=== PATIENT | male | born 1955 | race African-American/Black ===

== ENCOUNTER 2022-02-19 11:44 | Inpatient (IN) | payer MEDICARE, OTHER ==
[~2022-02-19] VITALS: Ht 182.9 cm; Wt 109.8 kg
[2022-02-19 15:09] LABS: BASOPHILS % 0.2 % (0.0-1.0); EOSINOPHILS # (AUTO) 0.1 (0.0-0.4); EOSINOPHILS % 0.9 % (0.0-6.0); HEMATOCRIT 30.6 % (38.2-49.6); HEMOGLOBIN 9.5 g/dL (14.0-18.0); LYMPHOCYTES # (AUTO) 1.2 (1.0-3.2); LYMPHOCYTES % 9.9 % (18.0-39.1); MEAN CORPUSCULAR HEMOGLOBIN 27.5 pg (28-32); MEAN CORPUSCULAR VOLUME 88.7 fL (81-99); MONOCYTES # (AUTO) 1.4 (0.2-0.8); MONOCYTES % 11.2 % (4.4-11.3); NEUTROPHILS # (AUTO) 9.7 (2.1-6.9); NEUTROPHILS % 77.3 % (38.7-80.0); PLATELET COUNT 165 x10e3/uL (140-360); RED BLOOD COUNT 3.45 x10e6/uL (4.3-5.7); RED CELL DISTRIBUTION WIDTH 14.2 % (11.7-14.4)
[2022-02-19 15:21] LABS: INR 1.04; PROTHROMBIN TIME 14.5 seconds (11.9-14.5)
[2022-02-19 15:29] LABS: ALBUMIN 3.4 g/dL (3.5-5.0); ALBUMIN/GLOBULIN RATIO 0.9 (0.8-2.0); ANION GAP 16.4 mmol/L (8-16); CALCIUM 8.2 mg/dL (8.4-10.2); CREATININE, SERUM 3.11 mg/dL (0.72-1.25); POTASSIUM 4.4 mmol/L (3.5-5.1)
[2022-02-19] MEDS: Morphine 2mg Syringe 2 MG/ML SYR IV PRN (16:07)
[2022-02-19] MEDS: ONDANSETRON HCL INJ 2MG/ML 2ML 2 MG/ML VIAL IV PRN (16:08)
[2022-02-19 17:45] VITALS: BP 147/65
[2022-02-19] MEDS ORDERED: NOVOLOG100 UNIT/1 SC (19:36)
[2022-02-19] MEDS ORDERED: NIFEDIPINE ER30 M1 PO (19:36)
[2022-02-19] MEDS ORDERED: METOPROLOL TAR100 MG PO (19:36)
[2022-02-19] MEDS ORDERED: SODIUM BICARBO650 MG PO (19:36)
[2022-02-19] MEDS ORDERED: LATANOPROST2.5 ML OP (19:36)
[2022-02-19] MEDS ORDERED: DORZOLAMIDE-TIM10 ML OP (19:36)
[2022-02-19] MEDS ORDERED: ATORVASTATIN CA20 MG PO (19:36)
[2022-02-19] MEDS ORDERED: TORSEMIDE20 MG PO (19:36)
[2022-02-19 20:00] VITALS: BP 126/57
[2022-02-19 20:30] VITALS: BP 126/57
[2022-02-19] MEDS: INSULIN LISPRO 100 UNIT/1 ML 3ML VIAL SQ SCH (21:45)
[2022-02-19] MEDS ORDERED: DORZOLAMIDE/TIMOLOL (OPTH SOL) 10 ML DRPETTE OP SCH (21:45)
[2022-02-19] MEDS ORDERED: ACETAMINOPHEN 325 MG TAB PO PRN (21:45)
[2022-02-19] MEDS ORDERED: HYDRALAZINE HCL 20 MG/ML VIAL IV PRN (21:45)
[2022-02-19] MEDS: LATANOPROST(OPTH) 2.5 ML BTL OP SCH (21:45)
[2022-02-19] MEDS: DORZOLAMIDE/TIMOLOL (OPTH SOL) 10 ML DRPETTE OP SCH (21:50)
[2022-02-19] MEDS: METOPROLOL TARTRATE 50 MG TAB PO SCH (23:02)
[2022-02-19] MEDS: ATORVASTATIN 20 MG TAB PO SCH (23:02)
[2022-02-20] VITALS (8 sets, daily range): BP systolic 126–150; BP diastolic 59–71
[2022-02-20 05:25] LABS: BASOPHILS % 0.3 % (0.0-1.0); EOSINOPHILS # (AUTO) 0.2 (0.0-0.4); EOSINOPHILS % 1.8 % (0.0-6.0); HEMATOCRIT 28.6 % (38.2-49.6); HEMOGLOBIN 8.9 g/dL (14.0-18.0); LYMPHOCYTES % 10.3 % (18.0-39.1); MEAN CORPUSCULAR HEMOGLOBIN 27.5 pg (28-32); MEAN CORPUSCULAR HGB CONC 31.1 g/dL (31-35); MEAN CORPUSCULAR VOLUME 88.3 fL (81-99); MONOCYTES # (AUTO) 1.2 (0.2-0.8); MONOCYTES % 12.3 % (4.4-11.3); NEUTROPHILS % 74.8 % (38.7-80.0); PLATELET COUNT 152 x10e3/uL (140-360); RED BLOOD COUNT 3.24 x10e6/uL (4.3-5.7); RED CELL DISTRIBUTION WIDTH 14.2 % (11.7-14.4)
[2022-02-20 05:53] LABS: ALBUMIN/GLOBULIN RATIO 0.9 (0.8-2.0); ANION GAP 16.2 mmol/L (8-16); CREATININE, SERUM 2.97 mg/dL (0.72-1.25); POTASSIUM 4.2 mmol/L (3.5-5.1)
[2022-02-20] MEDS: INSULIN LISPRO 100 UNIT/1 ML 3ML VIAL SQ SCH ×4 (07:30→22:32)
[2022-02-20] MEDS: METOPROLOL TARTRATE 50 MG TAB PO SCH ×2 (08:59→17:00)
[2022-02-20] MEDS: DORZOLAMIDE/TIMOLOL (OPTH SOL) 10 ML DRPETTE OP SCH ×2 (09:00→21:00)
[2022-02-20 09:11] LABS: CHOL/HDL RATIO 3.3 (3.9-4.7)
[2022-02-20 09:32] LABS: % IRON SATURATION 12 % (15-50); IRON 24 ug/dL (65-175); TOTAL IRON BINDING CAPACITY 202 ug/dL (261-478); TRANSFERRIN 144 mg/dL (174-364)
[2022-02-20] MEDS ORDERED: SODIUM CHLORIDE 0.45% 1,000 ML IV SCH (11:15)
[2022-02-20] MEDS: DEXTROSE 5%/0.225% SOD CHL 1,000 ML IV SCH (14:29)
[2022-02-20] MEDS: Morphine 2mg Syringe 2 MG/ML SYR IV PRN ×2 (15:08→19:00)
[2022-02-20] MEDS: ONDANSETRON HCL INJ 2MG/ML 2ML 2 MG/ML VIAL IV PRN ×2 (15:08→19:00)
[2022-02-20] MEDS ORDERED: BUPIVACAINE 0.25% 30ML SDV ONE (16:17)
[2022-02-20] MEDS: ATORVASTATIN 20 MG TAB PO SCH (20:59)
[2022-02-20] MEDS ORDERED: Vancomycin IV 1 GM in SODIUM CHLORIDE 0.9% 250ML 250 ML IV ONE (21:00)
[2022-02-20] MEDS: LATANOPROST(OPTH) 2.5 ML BTL OP SCH (21:00)
[2022-02-20] MEDS: IRON SUCROSE 100 MG in SODIUM CHLORIDE 0.9% 100 ML IV SCH (21:04)
[2022-02-21] VITALS (7 sets, daily range): BP systolic 124–160; BP diastolic 59–79
[2022-02-21] MEDS ORDERED: Morphine 2mg Syringe 2 MG/ML SYR IV PRN (00:30)
[2022-02-21] MEDS: HYDROCODONE/APAP 10MG-325MG TAB PO PRN ×2 (03:38→11:17)
[2022-02-21] MEDS: DEXTROSE 5%/0.225% SOD CHL 1,000 ML IV SCH (05:00)
[2022-02-21 05:41] LABS: BASOPHILS % 0.2 % (0.0-1.0); HEMATOCRIT 24.2 % (38.2-49.6); HEMOGLOBIN 7.5 g/dL (14.0-18.0); LYMPHOCYTES # (AUTO) 0.5 (1.0-3.2); LYMPHOCYTES % 3.9 % (18.0-39.1); MEAN CORPUSCULAR HEMOGLOBIN 27.9 pg (28-32); MONOCYTES % 7.9 % (4.4-11.3); NEUTROPHILS # (AUTO) 11.2 (2.1-6.9); NEUTROPHILS % 87.4 % (38.7-80.0); PLATELET COUNT 174 x10e3/uL (140-360); RED BLOOD COUNT 2.69 x10e6/uL (4.3-5.7); RED CELL DISTRIBUTION WIDTH 14.2 % (11.7-14.4)
[2022-02-21 05:57] LABS: ANION GAP 16.6 mmol/L (8-16); CREATININE, SERUM 2.98 mg/dL (0.72-1.25)
[2022-02-21 05:58] LABS: POTASSIUM 5.6 mmol/L (3.5-5.1)
[2022-02-21] MEDS: METOPROLOL TARTRATE 50 MG TAB PO SCH ×2 (08:26→17:59)
[2022-02-21] MEDS: INSULIN LISPRO 100 UNIT/1 ML 3ML VIAL SQ SCH ×4 (08:33→21:53)
[2022-02-21] MEDS: ASPIRIN 81 MG CHEW TAB PO SCH ×2 (08:34→17:59)
[2022-02-21] MEDS: DORZOLAMIDE/TIMOLOL (OPTH SOL) 10 ML DRPETTE OP SCH ×2 (08:34→21:16)
[2022-02-21] MEDS ORDERED: SOD POLYSTYRENE SULFONATE SUSP 15 GM/60 ML BTL PO ONE (10:00)
[2022-02-21] MEDS ORDERED: FENTANYL CITRATE/PF 100MCG/2 ML INJ ONE (13:38)
[2022-02-21] MEDS ORDERED: MIDAZOLAM HCL 2 MG/2 ML VIAL ONE (13:38)
[2022-02-21] MEDS: IRON SUCROSE 100 MG in SODIUM CHLORIDE 0.9% 100 ML IV SCH (14:00)
[2022-02-21 16:09] LABS: BASOPHILS % 0.2 % (0.0-1.0); EOSINOPHILS % 0.1 % (0.0-6.0); HEMATOCRIT 23.7 % (38.2-49.6); HEMOGLOBIN 7.3 g/dL (14.0-18.0); LYMPHOCYTES # (AUTO) 0.8 (1.0-3.2); LYMPHOCYTES % 6.1 % (18.0-39.1); MEAN CORPUSCULAR HEMOGLOBIN 27.5 pg (28-32); MEAN CORPUSCULAR HGB CONC 30.8 g/dL (31-35); MEAN CORPUSCULAR VOLUME 89.4 fL (81-99); MONOCYTES # (AUTO) 1.4 (0.2-0.8); MONOCYTES % 11.5 % (4.4-11.3); NEUTROPHILS % 81.3 % (38.7-80.0); PLATELET COUNT 181 x10e3/uL (140-360); RED BLOOD COUNT 2.65 x10e6/uL (4.3-5.7); RED CELL DISTRIBUTION WIDTH 14.1 % (11.7-14.4)
[2022-02-21 16:27] LABS: ANION GAP 16.4 mmol/L (8-16); CALCIUM 7.8 mg/dL (8.4-10.2); CREATININE, SERUM 3.3 mg/dL (0.72-1.25); POTASSIUM 4.4 mmol/L (3.5-5.1)
[2022-02-21] MEDS: SODIUM BICARBONATE 650 MG TAB PO SCH (17:59)
[2022-02-21] MEDS: ATORVASTATIN 20 MG TAB PO SCH (21:17)
[2022-02-21] MEDS: LATANOPROST(OPTH) 2.5 ML BTL OP SCH (21:19)
[2022-02-22] VITALS (9 sets, daily range): BP systolic 130–154; BP diastolic 57–83
[2022-02-22 05:17] LABS: BASOPHILS % 0.3 % (0.0-1.0); EOSINOPHILS # (AUTO) 0.1 (0.0-0.4); EOSINOPHILS % 0.9 % (0.0-6.0); LYMPHOCYTES # (AUTO) 1.3 (1.0-3.2); LYMPHOCYTES % 12.5 % (18.0-39.1); MEAN CORPUSCULAR HEMOGLOBIN 27.8 pg (28-32); MEAN CORPUSCULAR HGB CONC 32.5 g/dL (31-35); MEAN CORPUSCULAR VOLUME 85.5 fL (81-99); MONOCYTES # (AUTO) 1.3 (0.2-0.8); MONOCYTES % 12.3 % (4.4-11.3); NEUTROPHILS # (AUTO) 7.7 (2.1-6.9); PLATELET COUNT 178 x10e3/uL (140-360); RED BLOOD COUNT 2.34 x10e6/uL (4.3-5.7); RED CELL DISTRIBUTION WIDTH 14.3 % (11.7-14.4)
[2022-02-22 05:23] LABS: HEMOGLOBIN 6.5 g/dL (14.0-18.0)
[2022-02-22 05:36] LABS: ANION GAP 14.7 mmol/L (8-16); CALCIUM 7.6 mg/dL (8.4-10.2); CREATININE, SERUM 3.09 mg/dL (0.72-1.25); POTASSIUM 3.7 mmol/L (3.5-5.1)
[2022-02-22] MEDS ORDERED: SODIUM CHLORIDE 0.9% 250ML 250 ML IV ONE (05:45)
[2022-02-22] MEDS: METOPROLOL TARTRATE 50 MG TAB PO SCH ×2 (08:27→17:37)
[2022-02-22] MEDS: ASPIRIN 81 MG CHEW TAB PO SCH ×2 (08:27→17:36)
[2022-02-22] MEDS: SODIUM BICARBONATE 650 MG TAB PO SCH ×2 (08:28→17:36)
[2022-02-22] MEDS: IRON SUCROSE 100 MG in SODIUM CHLORIDE 0.9% 100 ML IV SCH (08:28)
[2022-02-22] MEDS: INSULIN LISPRO 100 UNIT/1 ML 3ML VIAL SQ SCH ×4 (08:37→21:06)
[2022-02-22] MEDS: DORZOLAMIDE/TIMOLOL (OPTH SOL) 10 ML DRPETTE OP SCH ×2 (08:38→20:57)
[2022-02-22] MEDS: HYDROCODONE/APAP 10MG-325MG TAB PO PRN (19:55)
[2022-02-22] MEDS: LATANOPROST(OPTH) 2.5 ML BTL OP SCH (20:55)
[2022-02-22] MEDS: ATORVASTATIN 20 MG TAB PO SCH (21:02)
[2022-02-23] VITALS (8 sets, daily range): BP systolic 128–156; BP diastolic 60–72
[2022-02-23 05:23] LABS: BASOPHILS % 0.4 % (0.0-1.0); EOSINOPHILS # (AUTO) 0.2 (0.0-0.4); EOSINOPHILS % 1.5 % (0.0-6.0); LYMPHOCYTES # (AUTO) 1.4 (1.0-3.2); LYMPHOCYTES % 12.6 % (18.0-39.1); MEAN CORPUSCULAR HEMOGLOBIN 28.2 pg (28-32); MONOCYTES # (AUTO) 1.4 (0.2-0.8); NEUTROPHILS # (AUTO) 7.8 (2.1-6.9); NEUTROPHILS % 71.5 % (38.7-80.0); PLATELET COUNT 191 x10e3/uL (140-360); RED BLOOD COUNT 2.84 x10e6/uL (4.3-5.7); RED CELL DISTRIBUTION WIDTH 14.8 % (11.7-14.4)
[2022-02-23 05:51] LABS: ANION GAP 16.8 mmol/L (8-16); CREATININE, SERUM 2.88 mg/dL (0.72-1.25); POTASSIUM 3.8 mmol/L (3.5-5.1)
[2022-02-23] MEDS: INSULIN LISPRO 100 UNIT/1 ML 3ML VIAL SQ SCH ×4 (08:00→20:54)
[2022-02-23] MEDS: DORZOLAMIDE/TIMOLOL (OPTH SOL) 10 ML DRPETTE OP SCH ×2 (09:34→20:56)
[2022-02-23] MEDS: ASPIRIN 81 MG CHEW TAB PO SCH ×2 (09:34→17:06)
[2022-02-23] MEDS: SODIUM BICARBONATE 650 MG TAB PO SCH ×2 (09:35→17:06)
[2022-02-23] MEDS: METOPROLOL TARTRATE 50 MG TAB PO SCH ×2 (09:35→17:06)
[2022-02-23] MEDS: EPOETIN ALFA-EPBX 10,000 UNIT/ML VIAL SC SCH (16:56)
[2022-02-23] MEDS: DOCUSATE SODIUM 100 MG CAP PO SCH (17:06)
[2022-02-23] MEDS ORDERED: HYDROCODONE/APAP 5MG-325MG TAB PO PRN (18:30)
[2022-02-23] MEDS ORDERED: LACTULOSE SYRUP 20 GM/30 ML UDC PO PRN (18:30)
[2022-02-23] MEDS: ATORVASTATIN 20 MG TAB PO SCH (20:52)
[2022-02-23] MEDS: LATANOPROST(OPTH) 2.5 ML BTL OP SCH (20:55)
[2022-02-24] VITALS (7 sets, daily range): BP systolic 132–158; BP diastolic 57–69
[2022-02-24] MEDS: DOCUSATE SODIUM 100 MG CAP PO SCH ×2 (09:13→17:19)
[2022-02-24] MEDS: ASPIRIN 81 MG CHEW TAB PO SCH ×2 (09:13→17:19)
[2022-02-24] MEDS: METOPROLOL TARTRATE 50 MG TAB PO SCH ×2 (09:14→17:20)
[2022-02-24] MEDS: SODIUM BICARBONATE 650 MG TAB PO SCH ×2 (09:14→17:20)
[2022-02-24] MEDS: DORZOLAMIDE/TIMOLOL (OPTH SOL) 10 ML DRPETTE OP SCH ×2 (09:18→20:57)
[2022-02-24] MEDS: INSULIN LISPRO 100 UNIT/1 ML 3ML VIAL SQ SCH ×4 (09:21→21:05)
[2022-02-24] MEDS ORDERED: SEVOFLURANE INHAL SOLN 250 ML PEN BTL INH ONE (14:21)
[2022-02-24] MEDS ORDERED: LIDOCAINE HCL 2% LOCAL INJ 5 ML SDV VIAL INJ ONE (14:21)
[2022-02-24] MEDS ORDERED: PROPOFOL IV EMULSION 10 MG/ML 20 ML VIAL IV ONE (14:21)
[2022-02-24] MEDS ORDERED: ONDANSETRON HCL INJ 2MG/ML 2ML 2 MG/ML VIAL IV ONE (14:21)
[2022-02-24] MEDS ORDERED: POVIDONE IODINE 0.05% 0.05 % ML PO ONE (14:21)
[2022-02-24] MEDS ORDERED: DEXAMETHASONE SOD PHOS INJ 4 MG/ML SDV IV ONE (14:21)
[2022-02-24] MEDS ORDERED: ACETAMINOPHEN 1000 MG/100 ML IV ONE (14:21)
[2022-02-24] MEDS ORDERED: EPHEDRINE SULFATE INJ 50 MG/ML VIAL IV ONE (14:21)
[2022-02-24] MEDS: HYDROCODONE/APAP 10MG-325MG TAB PO PRN (19:11)
[2022-02-24] MEDS: LATANOPROST(OPTH) 2.5 ML BTL OP SCH (20:58)
[2022-02-24] MEDS: ATORVASTATIN 20 MG TAB PO SCH (20:59)
[2022-02-25] VITALS (7 sets, daily range): BP systolic 131–159; BP diastolic 56–68
[2022-02-25] MEDS: INSULIN LISPRO 100 UNIT/1 ML 3ML VIAL SQ SCH ×4 (08:19→22:48)
[2022-02-25] MEDS: DORZOLAMIDE/TIMOLOL (OPTH SOL) 10 ML DRPETTE OP SCH ×2 (08:22→22:41)
[2022-02-25] MEDS: ASPIRIN 81 MG CHEW TAB PO SCH ×2 (08:22→17:21)
[2022-02-25] MEDS: SODIUM BICARBONATE 650 MG TAB PO SCH ×2 (08:22→17:20)
[2022-02-25] MEDS: DOCUSATE SODIUM 100 MG CAP PO SCH ×2 (08:22→17:20)
[2022-02-25] MEDS: METOPROLOL TARTRATE 50 MG TAB PO SCH ×2 (08:23→17:20)
[2022-02-25] MEDS: EPOETIN ALFA-EPBX 10,000 UNIT/ML VIAL SC SCH (14:51)
[2022-02-25] MEDS: HYDROCODONE/APAP 10MG-325MG TAB PO PRN ×2 (19:12→23:28)
[2022-02-25] MEDS: LATANOPROST(OPTH) 2.5 ML BTL OP SCH (22:41)
[2022-02-25] MEDS: ATORVASTATIN 20 MG TAB PO SCH (22:43)
[2022-02-26] VITALS: BP 141/69
[2022-02-26 02:23] VITALS: BP 141/69
[2022-02-26 04:00] VITALS: BP 146/67
[2022-02-26] MEDS: INSULIN LISPRO 100 UNIT/1 ML 3ML VIAL SQ SCH ×2 (07:30→11:30)
[2022-02-26 08:21] VITALS: BP 155/72
[2022-02-26] MEDS: DOCUSATE SODIUM 100 MG CAP PO SCH (09:14)
[2022-02-26] MEDS: ASPIRIN 81 MG CHEW TAB PO SCH (09:14)
[2022-02-26] MEDS: METOPROLOL TARTRATE 50 MG TAB PO SCH (09:15)
[2022-02-26] MEDS: SODIUM BICARBONATE 650 MG TAB PO SCH (09:15)
[2022-02-26] MEDS: DORZOLAMIDE/TIMOLOL (OPTH SOL) 10 ML DRPETTE OP SCH (09:23)
[2022-02-26 11:45] VITALS: BP 118/60
[2022-02-26] MEDS ORDERED: ONDANSETRON HCL 4 MG ORAL DISINTEGRATING TAB PO PRN (14:00)
== END 2022-02-26 14:43 | disposition home or self-care (01) | DRG 481 ==
LOC: ER 11:53 → ERHOLD 15:15 → MED/SURG 18:21 → MED/SURG3 02-21 09:41
PROVIDERS: ADMIT Internal Medicine; ATTEND Internal Medicine
PROC: 0QH Lower Bones, Insertion (ICD-10-PCS; principal; 2022-02-20 16:07)
PROC: 30233N1 Transfusion of Nonautologous Red Blood Cells into Peripheral Vein, Percutaneous Approach (ICD-10-PCS; 2022-02-22)
DX: S72.091A Other fracture of head and neck of right femur, initial encounter for closed fracture (principal); D62 Acute posthemorrhagic anemia; N18.4 Chronic kidney disease, stage 4 (severe); N17.9 Acute kidney failure, unspecified; E11.22 Type 2 diabetes mellitus with diabetic chronic kidney disease; I12.9 Hypertensive chronic kidney disease with stage 1 through stage 4 chronic kidney disease, or unspecified chronic kidney disease; Z79.4 Long term (current) use of insulin; D50.9 Iron deficiency anemia, unspecified; H54.8 Legal blindness, as defined in USA; W01.198A Fall on same level from slipping, tripping and stumbling with subsequent striking against other object, initial encounter; Z91.81 History of falling; Y93.9 Activity, unspecified; Z20.822 Contact with and (suspected) exposure to COVID-19
CPT/HCPCS: 0223U; 36415; 51700; 70450; 71045; 72125; 72170; 72192; 76000; 80048; 80053; 80061; 82948; 83540; 84466; 85025; 85610; 85730; 86850; 86900; 86920; 93005; 93306; 96361; 99251; 99283; C1713; J0690; J1100; J1756; J2001; J2250; J2270; J2405; J3010; J3370; J7050; P9016

== ENCOUNTER 2022-02-27 14:33 | Inpatient (IN) | payer MEDICARE ==
[~2022-02-27] VITALS: Ht 182.9 cm; Wt 109.8 kg
[~2022-02-27 14:33] MED LIST: ATORVASTATIN CA20 MG PO; DORZOLAMIDE-TIM10 ML OP; LATANOPROST2.5 ML OP; METOPROLOL TAR100 MG PO; NIFEDIPINE ER30 M1 PO; NOVOLOG100 UNIT/1 SC; SODIUM BICARBO650 MG PO; TORSEMIDE20 MG PO
[2022-02-27 15:25] LABS: BASOPHILS # (AUTO) 0.1 (0.0-0.1); BASOPHILS % 0.3 % (0.0-1.0); EOSINOPHILS % 0.1 % (0.0-6.0); LYMPHOCYTES # (AUTO) 1.5 (1.0-3.2); LYMPHOCYTES % 7.7 % (18.0-39.1); MEAN CORPUSCULAR HEMOGLOBIN 28.4 pg (28-32); MEAN CORPUSCULAR VOLUME 94.8 fL (81-99); MONOCYTES # (AUTO) 1.9 (0.2-0.8); MONOCYTES % 9.5 % (4.4-11.3); NEUTROPHILS # (AUTO) 15.5 (2.1-6.9); NEUTROPHILS % 79.5 % (38.7-80.0); PLATELET COUNT 330 x10e3/uL (140-360); RED BLOOD COUNT 2.11 x10e6/uL (4.3-5.7); RED CELL DISTRIBUTION WIDTH 16.1 % (11.7-14.4)
[2022-02-27] MEDS ORDERED: SODIUM CHLORIDE 0.9% 250ML 250 ML IV ONE (15:30)
[2022-02-27] MEDS ORDERED: ONDANSETRON HCL INJ 2MG/ML 2ML 2 MG/ML VIAL IV PRN (15:30)
[2022-02-27] MEDS ORDERED: SODIUM CHLORIDE FLUSH 10 ML SYR INJ PRN (15:30)
[2022-02-27 15:35] LABS: INR 1.14; PROTHROMBIN TIME 15.6 seconds (11.9-14.5)
[2022-02-27 15:42] LABS: ALBUMIN 2.8 g/dL (3.5-5.0); ALBUMIN/GLOBULIN RATIO 0.8 (0.8-2.0); ANION GAP 21.1 mmol/L (8-16); CALCIUM 8.2 mg/dL (8.4-10.2); CREATININE, SERUM 2.71 mg/dL (0.72-1.25); POTASSIUM 5.1 mmol/L (3.5-5.1)
[2022-02-27] MEDS ORDERED: SODIUM CHLORIDE 0.9% 1000ML 1,000 ML IV ONE (16:00)
[2022-02-27 16:08] LABS: COLOR,URINE YELLOW (YELLOW); KETONES,URINE NEGATIVE (NEGATIVE); LEUKOCYTE ESTERASE ,URINE 1+ (NEGATIVE); NITRITE,URINE NEGATIVE (NEGATIVE); PROTEIN,URINE DIPSTICK TRACE (NEGATIVE); URINE UROBILINOGEN 0.2 mg/dL (0.2 - 1)
[2022-02-27 16:23] LABS: BACTERIA,URINE MANY /HPF; EPITHELIAL CELLS,URINE FEW /LPF; RBC,URINE 21-50 /HPF (0-5); WBC,URINE (MAN) >50 /HPF (0-5)
[2022-02-27 16:24] LABS: CLARITY,URINE SL CLOUDY (CLEAR); MUCUS,URINE FEW (RARE); RENAL EPITHELIAL CELLS,URINE FEW; TRANSITIONAL EPI CELLS,URINE FEW
[2022-02-27] MEDS ORDERED: ACETAMINOPHEN 325 MG TAB PO PRN (17:00)
[2022-02-27] MEDS ORDERED: CLONIDINE HCL 0.1 MG TAB PO PRN (17:00)
[2022-02-27 17:10] VITALS: BP 120/62
[2022-02-27 18:02] VITALS: BP 121/62
[2022-02-27 19:20] VITALS: BP 126/71
[2022-02-27] MEDS ORDERED: DEXTROSE 50% SYRINGE 50 ML IV PRN (19:45)
[2022-02-27 20:00] VITALS: BP 126/71
[2022-02-27] MEDS: ATORVASTATIN 20 MG TAB PO SCH (20:36)
[2022-02-27] MEDS: INSULIN REGULAR, HUMAN 100 UNIT/1 ML SQ SCH (20:49)
[2022-02-27] MEDS: LATANOPROST(OPTH) 2.5 ML BTL OP SCH (20:50)
[2022-02-27] MEDS ORDERED: SODIUM CHLORIDE 0.9% 500ML 500 ML ONE (22:20)
[2022-02-27 23:10] LABS: % IRON SATURATION 29 % (15-50); IRON 61 ug/dL (65-175); TOTAL IRON BINDING CAPACITY 214 ug/dL (261-478); TRANSFERRIN 153 mg/dL (174-364)
[2022-02-27] MEDS ORDERED: BISACODYL 5 MG TAB EC PO ONE ×2 (23:15→23:45)
[2022-02-28] VITALS (8 sets, daily range): BP systolic 120–169; BP diastolic 57–76
[2022-02-28] MEDS ORDERED: SODIUM CHLORIDE 0.9% 500ML 500 ML ONE (03:28)
[2022-02-28] MEDS ORDERED: CITRATE OF MAGNESIA 300ML BOTTLE PO ONE ×3 (05:00→22:45)
[2022-02-28 07:26] LABS: BASOPHILS # (AUTO) 0.1 (0.0-0.1); BASOPHILS % 0.4 % (0.0-1.0); EOSINOPHILS # (AUTO) 0.1 (0.0-0.4); EOSINOPHILS % 0.6 % (0.0-6.0); HEMATOCRIT 24.9 % (38.2-49.6); HEMOGLOBIN 7.9 g/dL (14.0-18.0); LYMPHOCYTES # (AUTO) 1.4 (1.0-3.2); LYMPHOCYTES % 9.2 % (18.0-39.1); MEAN CORPUSCULAR HEMOGLOBIN 29.8 pg (28-32); MEAN CORPUSCULAR HGB CONC 31.7 g/dL (31-35); MONOCYTES % 13.1 % (4.4-11.3); NEUTROPHILS # (AUTO) 11.2 (2.1-6.9); NEUTROPHILS % 72.2 % (38.7-80.0); PLATELET COUNT 250 x10e3/uL (140-360); RED BLOOD COUNT 2.65 x10e6/uL (4.3-5.7); RED CELL DISTRIBUTION WIDTH 15.5 % (11.7-14.4)
[2022-02-28] MEDS: INSULIN REGULAR, HUMAN 100 UNIT/1 ML SQ SCH ×4 (07:30→21:20)
[2022-02-28 07:33] LABS: INR 1.12; PROTHROMBIN TIME 15.4 seconds (11.9-14.5)
[2022-02-28 07:43] LABS: ANION GAP 16.3 mmol/L (8-16); CALCIUM 7.8 mg/dL (8.4-10.2); CREATININE, SERUM 2.63 mg/dL (0.72-1.25); POTASSIUM 4.3 mmol/L (3.5-5.1)
[2022-02-28] MEDS ORDERED: SODIUM CHLORIDE 0.9% 250ML 250 ML ONE ×2 (08:29→08:30)
[2022-02-28] MEDS: SODIUM BICARBONATE 650 MG TAB PO SCH (09:00)
[2022-02-28] MEDS: IRON SUCROSE 100 MG in SODIUM CHLORIDE 0.9% 100 ML IV SCH (12:00)
[2022-02-28 13:53] LABS: HEMATOCRIT 25.6 % (38.2-49.6); HEMOGLOBIN 8.2 g/dL (14.0-18.0)
[2022-02-28] MEDS ORDERED: BISACODYL 5 MG TAB EC PO ONE ×2 (17:45→18:45)
[2022-02-28] MEDS: ATORVASTATIN 20 MG TAB PO SCH (20:03)
[2022-02-28] MEDS: LATANOPROST(OPTH) 2.5 ML BTL OP SCH (20:27)
[2022-03-01] VITALS (8 sets, daily range): BP systolic 127–163; BP diastolic 49–80
[2022-03-01] MEDS: IRON SUCROSE 100 MG in SODIUM CHLORIDE 0.9% 100 ML IV SCH (08:29)
[2022-03-01] MEDS: SODIUM BICARBONATE 650 MG TAB PO SCH (08:29)
[2022-03-01 08:31] LABS: BASOPHILS % 0.3 % (0.0-1.0); EOSINOPHILS # (AUTO) 0.1 (0.0-0.4); EOSINOPHILS % 0.7 % (0.0-6.0); HEMATOCRIT 23.9 % (38.2-49.6); HEMOGLOBIN 7.6 g/dL (14.0-18.0); LYMPHOCYTES # (AUTO) 1.1 (1.0-3.2); LYMPHOCYTES % 7.1 % (18.0-39.1); MEAN CORPUSCULAR HGB CONC 31.8 g/dL (31-35); MEAN CORPUSCULAR VOLUME 94.5 fL (81-99); MONOCYTES # (AUTO) 1.5 (0.2-0.8); MONOCYTES % 9.7 % (4.4-11.3); NEUTROPHILS # (AUTO) 12.1 (2.1-6.9); NEUTROPHILS % 78.8 % (38.7-80.0); PLATELET COUNT 275 x10e3/uL (140-360); RED BLOOD COUNT 2.53 x10e6/uL (4.3-5.7); RED CELL DISTRIBUTION WIDTH 17.1 % (11.7-14.4)
[2022-03-01] MEDS: INSULIN REGULAR, HUMAN 100 UNIT/1 ML SQ SCH ×4 (08:34→21:00)
[2022-03-01 09:12] LABS: ANION GAP 14.6 mmol/L (8-16); CREATININE, SERUM 2.32 mg/dL (0.72-1.25); POTASSIUM 3.6 mmol/L (3.5-5.1)
[2022-03-01] MEDS ORDERED: BISACODYL 5 MG TAB EC PO ONE ×3 (14:00→22:45)
[2022-03-01] MEDS: LATANOPROST(OPTH) 2.5 ML BTL OP SCH (21:00)
[2022-03-01] MEDS: ATORVASTATIN 20 MG TAB PO SCH (21:14)
[2022-03-01] MEDS: DEXTROSE 5%/LACTATED RINGERS 1,000 ML IV SCH (23:02)
[2022-03-02] VITALS (8 sets, daily range): BP systolic 132–162; BP diastolic 64–88
[2022-03-02 05:48] LABS: BASOPHILS # (AUTO) 0.1 (0.0-0.1); BASOPHILS % 0.4 % (0.0-1.0); EOSINOPHILS # (AUTO) 0.2 (0.0-0.4); EOSINOPHILS % 1.5 % (0.0-6.0); HEMATOCRIT 24.2 % (38.2-49.6); HEMOGLOBIN 7.7 g/dL (14.0-18.0); LYMPHOCYTES # (AUTO) 1.3 (1.0-3.2); LYMPHOCYTES % 9.3 % (18.0-39.1); MEAN CORPUSCULAR HGB CONC 31.8 g/dL (31-35); MEAN CORPUSCULAR VOLUME 94.2 fL (81-99); MONOCYTES # (AUTO) 1.4 (0.2-0.8); MONOCYTES % 9.8 % (4.4-11.3); NEUTROPHILS # (AUTO) 10.9 (2.1-6.9); NEUTROPHILS % 75.9 % (38.7-80.0); PLATELET COUNT 291 x10e3/uL (140-360); RED BLOOD COUNT 2.57 x10e6/uL (4.3-5.7); RED CELL DISTRIBUTION WIDTH 18.2 % (11.7-14.4)
[2022-03-02 06:01] LABS: ANION GAP 13.6 mmol/L (8-16); CALCIUM 8.2 mg/dL (8.4-10.2); CREATININE, SERUM 2.12 mg/dL (0.72-1.25); POTASSIUM 3.6 mmol/L (3.5-5.1)
[2022-03-02] MEDS: INSULIN REGULAR, HUMAN 100 UNIT/1 ML SQ SCH ×4 (07:30→21:53)
[2022-03-02] MEDS: SODIUM BICARBONATE 650 MG TAB PO SCH (09:00)
[2022-03-02] MEDS: IRON SUCROSE 100 MG in SODIUM CHLORIDE 0.9% 100 ML IV SCH (09:37)
[2022-03-02] MEDS ORDERED: HYOSCYAMINE SULFATE 0.5 MG/ML INJ ONE (12:35)
[2022-03-02] MEDS ORDERED: LIDOCAINE HCL 2% LOCAL INJ 5 ML SDV VIAL INJ ONE (12:35)
[2022-03-02] MEDS ORDERED: GLUCAGON FOR INJ 1 MG VIAL ONE (12:35)
[2022-03-02] MEDS ORDERED: PROPOFOL IV EMULSION 10 MG/ML 20 ML VIAL ONE (12:35)
[2022-03-02] MEDS: DEXTROSE 5%/LACTATED RINGERS 1,000 ML IV SCH (15:32)
[2022-03-02] MEDS: LATANOPROST(OPTH) 2.5 ML BTL OP SCH (21:00)
[2022-03-02] MEDS: ATORVASTATIN 20 MG TAB PO SCH (21:37)
[2022-03-03] VITALS (7 sets, daily range): BP systolic 120–160; BP diastolic 60–80
[2022-03-03] MEDS: DEXTROSE 5%/LACTATED RINGERS 1,000 ML IV SCH (01:25)
[2022-03-03 05:42] LABS: BASOPHILS % 0.4 % (0.0-1.0); EOSINOPHILS # (AUTO) 0.2 (0.0-0.4); HEMATOCRIT 23.4 % (38.2-49.6); HEMOGLOBIN 7.2 g/dL (14.0-18.0); LYMPHOCYTES % 9.7 % (18.0-39.1); MEAN CORPUSCULAR HEMOGLOBIN 30.4 pg (28-32); MEAN CORPUSCULAR HGB CONC 30.8 g/dL (31-35); MEAN CORPUSCULAR VOLUME 98.7 fL (81-99); MONOCYTES # (AUTO) 1.1 (0.2-0.8); MONOCYTES % 10.1 % (4.4-11.3); NEUTROPHILS # (AUTO) 7.9 (2.1-6.9); NEUTROPHILS % 75.8 % (38.7-80.0); PLATELET COUNT 263 x10e3/uL (140-360); RED BLOOD COUNT 2.37 x10e6/uL (4.3-5.7); RED CELL DISTRIBUTION WIDTH 19.5 % (11.7-14.4)
[2022-03-03 06:02] LABS: ANION GAP 11.6 mmol/L (8-16); CALCIUM 7.9 mg/dL (8.4-10.2); CREATININE, SERUM 1.78 mg/dL (0.72-1.25); POTASSIUM 3.6 mmol/L (3.5-5.1)
[2022-03-03] MEDS: INSULIN REGULAR, HUMAN 100 UNIT/1 ML SQ SCH ×4 (07:30→21:30)
[2022-03-03] MEDS: IRON SUCROSE 100 MG in SODIUM CHLORIDE 0.9% 100 ML IV SCH (10:12)
[2022-03-03] MEDS: SODIUM BICARBONATE 650 MG TAB PO SCH (10:12)
[2022-03-03] MEDS: DORZOLAMIDE/TIMOLOL (OPTH SOL) 10 ML DRPETTE OP SCH ×2 (12:30→21:00)
[2022-03-03] MEDS: METOPROLOL TARTRATE 50 MG TAB PO SCH (17:00)
[2022-03-03] MEDS ORDERED: SODIUM CHLORIDE 0.9% 250ML 250 ML ONE (18:09)
[2022-03-03] MEDS: LATANOPROST(OPTH) 2.5 ML BTL OP SCH (21:00)
[2022-03-03] MEDS: ATORVASTATIN 20 MG TAB PO SCH (21:24)
[2022-03-04] VITALS: BP 157/77
[2022-03-04 04:48] VITALS: BP 169/76
[2022-03-04 05:37] LABS: BASOPHILS # (AUTO) 0.1 (0.0-0.1); BASOPHILS % 0.5 % (0.0-1.0); EOSINOPHILS # (AUTO) 0.3 (0.0-0.4); EOSINOPHILS % 2.9 % (0.0-6.0); HEMATOCRIT 27.5 % (38.2-49.6); HEMOGLOBIN 8.7 g/dL (14.0-18.0); LYMPHOCYTES % 10.3 % (18.0-39.1); MEAN CORPUSCULAR HEMOGLOBIN 29.8 pg (28-32); MEAN CORPUSCULAR HGB CONC 31.6 g/dL (31-35); MEAN CORPUSCULAR VOLUME 94.2 fL (81-99); MONOCYTES % 9.7 % (4.4-11.3); NEUTROPHILS # (AUTO) 7.5 (2.1-6.9); NEUTROPHILS % 74.8 % (38.7-80.0); PLATELET COUNT 255 x10e3/uL (140-360); RED BLOOD COUNT 2.92 x10e6/uL (4.3-5.7)
[2022-03-04 05:50] LABS: ANION GAP 13.4 mmol/L (8-16); CALCIUM 7.9 mg/dL (8.4-10.2); CREATININE, SERUM 1.59 mg/dL (0.72-1.25); POTASSIUM 3.4 mmol/L (3.5-5.1)
[2022-03-04 07:52] VITALS: BP 148/72
[2022-03-04 09:00] VITALS: BP 148/72
[2022-03-04] MEDS: IRON SUCROSE 100 MG in SODIUM CHLORIDE 0.9% 100 ML IV SCH (09:05)
[2022-03-04] MEDS: SODIUM BICARBONATE 650 MG TAB PO SCH (09:06)
[2022-03-04] MEDS: DORZOLAMIDE/TIMOLOL (OPTH SOL) 10 ML DRPETTE OP SCH (09:06)
[2022-03-04] MEDS: METOPROLOL TARTRATE 50 MG TAB PO SCH (09:09)
[2022-03-04] MEDS: INSULIN REGULAR, HUMAN 100 UNIT/1 ML SQ SCH ×2 (09:09→12:02)
[2022-03-04] MEDS ORDERED: PROTONIX20 MG PO (09:45)
[2022-03-04] MEDS ORDERED: POTASSIUM CHLORIDE 10MEQ EA PO ONE (10:30)
[2022-03-04] MEDS ORDERED: AMOXICILLIN500 MG PO (10:49)
[2022-03-04] MEDS ORDERED: ONDANSETRON HCL 4 MG ORAL DISINTEGRATING TAB PO PRN (12:15)
[2022-03-04 12:26] VITALS: BP 171/74
[2022-03-04] MEDS ORDERED: PANTOPRAZOLE SOD 40 MG TABEC PO SCH (21:00)
== END 2022-03-04 12:44 | DRG 871 ==
LOC: ER 15:38 → ERHOLD 15:39 → MED/SURG2 17:25
PROVIDERS: ADMIT Internal Medicine; ATTEND Internal Medicine
PROC: 30233N1 Transfusion of Nonautologous Red Blood Cells into Peripheral Vein, Percutaneous Approach (ICD-10-PCS; 2022-02-27)
PROC: 0DBM8ZX Excision of Descending Colon, Via Natural or Artificial Opening Endoscopic, Diagnostic (ICD-10-PCS; 2022-03-02)
PROC: 0DB68ZX Excision of Stomach, Via Natural or Artificial Opening Endoscopic, Diagnostic (ICD-10-PCS; principal; 2022-03-02 19:26)
PROC: 0DB78ZX Excision of Stomach, Pylorus, Via Natural or Artificial Opening Endoscopic, Diagnostic (ICD-10-PCS; 2022-03-02 19:26)
DX: A41.9 Sepsis, unspecified organism (principal); K25.4 Chronic or unspecified gastric ulcer with hemorrhage; K26.4 Chronic or unspecified duodenal ulcer with hemorrhage; D62 Acute posthemorrhagic anemia; N39.0 Urinary tract infection, site not specified; N18.4 Chronic kidney disease, stage 4 (severe); E11.22 Type 2 diabetes mellitus with diabetic chronic kidney disease; I12.9 Hypertensive chronic kidney disease with stage 1 through stage 4 chronic kidney disease, or unspecified chronic kidney disease; K20.90 Esophagitis, unspecified without bleeding; K29.70 Gastritis, unspecified, without bleeding; K63.5 Polyp of colon; K64.8 Other hemorrhoids; H54.8 Legal blindness, as defined in USA; Z96.641 Presence of right artificial hip joint; Z20.822 Contact with and (suspected) exposure to COVID-19; E78.00 Pure hypercholesterolemia, unspecified; Z87.11 Personal history of peptic ulcer disease; B95.2 Enterococcus as the cause of diseases classified elsewhere
CPT/HCPCS: 0223U; 36415; 43239; 45378; 71045; 80048; 80053; 81001; 82607; 82746; 82948; 83540; 83605; 83735; 84466; 85014; 85018; 85025; 85045; 85610; 85730; 86850; 86900; 86920; 87040; 87086; 87186; 88304; 88305; 88312; 88342; 93005; 99284; J1610; J1756; J1817; J1980; J2001; J2543; J7030; J7040; J7050; P9016

== ENCOUNTER 2022-03-23 07:47 | Inpatient (IN) | payer MEDICARE ==
[~2022-03-23] VITALS: Ht 185.4 cm; Wt 121.7 kg
[2022-03-23] VITALS (21 sets, daily range): BP systolic 96–144; BP diastolic 29–124
[~2022-03-23 07:47] MED LIST changes: +AMOXICILLIN500 MG PO; +PROTONIX20 MG PO
[2022-03-23 08:19] LABS: BASOPHILS % 0.3 % (0.0-1.0); EOSINOPHILS # (AUTO) 0.1 (0.0-0.4); EOSINOPHILS % 0.6 % (0.0-6.0); HEMATOCRIT 29.2 % (38.2-49.6); HEMOGLOBIN 8.9 g/dL (14.0-18.0); LYMPHOCYTES # (AUTO) 0.4 (1.0-3.2); LYMPHOCYTES % 4.4 % (18.0-39.1); MEAN CORPUSCULAR HEMOGLOBIN 28.3 pg (28-32); MEAN CORPUSCULAR HGB CONC 30.5 g/dL (31-35); MONOCYTES # (AUTO) 0.9 (0.2-0.8); MONOCYTES % 9.6 % (4.4-11.3); NEUTROPHILS # (AUTO) 8.1 (2.1-6.9); NEUTROPHILS % 84.7 % (38.7-80.0); PLATELET COUNT 239 x10e3/uL (140-360); RED BLOOD COUNT 3.14 x10e6/uL (4.3-5.7); RED CELL DISTRIBUTION WIDTH 16.5 % (11.7-14.4)
[2022-03-23 08:30] LABS: INR 1.16; PROTHROMBIN TIME 15.8 seconds (11.9-14.5)
[2022-03-23 08:39] LABS: ABG PCO2 37 mmHg (35-45); ABG PH 7.33 (7.35-7.45); ABG PO2 51 mmHg (80-105)
[2022-03-23 08:40] LABS: ABG HCO3 20 mmol/L (22-26); ABG TCO2 21
[2022-03-23 09:28] LABS: ALBUMIN 2.8 g/dL (3.5-5.0); ALBUMIN/GLOBULIN RATIO 0.7 (0.8-2.0); ANION GAP 20.8 mmol/L (8-16); CALCIUM 8.5 mg/dL (8.4-10.2); CREATININE, SERUM 3.94 mg/dL (0.72-1.25); MAGNESIUM 2.7 MG/DL (1.3-2.1); POTASSIUM 5.8 mmol/L (3.5-5.1)
[2022-03-23 09:35] LABS: CREATINE KINASE MB 1.6 ng/mL (0-5.0)
[2022-03-23] MEDS ORDERED: FUROSEMIDE INJ 10 MG/ML 4 ML VIAL IV NR (10:00)
[2022-03-23 10:24] LABS: CLARITY,URINE CLEAR (CLEAR); COLOR,URINE YELLOW (YELLOW); KETONES,URINE TRACE (NEGATIVE); LEUKOCYTE ESTERASE ,URINE NEGATIVE (NEGATIVE); NITRITE,URINE NEGATIVE (NEGATIVE); PROTEIN,URINE DIPSTICK TRACE (NEGATIVE); URINE UROBILINOGEN 0.2 mg/dL (0.2 - 1)
[2022-03-23 10:29] LABS: BACTERIA,URINE MODERATE /HPF; EPITHELIAL CELLS,URINE MODERATE /LPF
[2022-03-23] MEDS ORDERED: DEXTROSE 50% SYRINGE 50 ML IV STA (11:01)
[2022-03-23] MEDS ORDERED: ONDANSETRON HCL INJ 2MG/ML 2ML 2 MG/ML VIAL IV PRN (11:15)
[2022-03-23] MEDS ORDERED: DEXTROSE 50% SYRINGE 50 ML IV PRN (11:15)
[2022-03-23] MEDS ORDERED: SODIUM BICARBONATE 8.4% INJ 50 ML SYR IV NR (11:15)
[2022-03-23] MEDS ORDERED: FAMOTIDINE 20 MG/2 ML VIAL IV SCH (11:15)
[2022-03-23] MEDS ORDERED: INSULIN REGULAR, HUMAN 100 UNIT/1 ML IV ONE (11:15)
[2022-03-23] MEDS: INSULIN LISPRO 100 UNIT/1 ML 3ML VIAL SQ SCH ×3 (11:30→21:36)
[2022-03-23] MEDS ORDERED: ALBUTEROL/IPRATROPIUM 3 ML NEB NEB NR (12:00)
[2022-03-23] MEDS ORDERED: LIDOCAINE HCL 2% LOCAL 20 ML VIAL ONE (14:18)
[2022-03-23] MEDS ORDERED: SODIUM CHLORIDE 0.9% 1000ML 2,000 ML ONE (14:37)
[2022-03-23] MEDS ORDERED: MANNITOL 25% 12.5GM/50 ML VIAL IV PRN (15:15)
[2022-03-23] MEDS ORDERED: SODIUM CHLORIDE 0.9% 250ML 500 ML IV PRN (15:15)
[2022-03-23] MEDS ORDERED: SODIUM CHLORIDE 0.9% 1000ML 2,000 ML IV PRN (15:15)
[2022-03-23] MEDS ORDERED: HEPARIN SOD (PORCINE) 1000 UNIT/ML SDV IV PRN (17:15)
[2022-03-23] MEDS ORDERED: HEPARIN SOD (PORCINE) 1000 UNIT/ML SDV ONE (17:17)
[2022-03-23 18:26] LABS: CREATINE KINASE MB 2.5 ng/mL (0-5.0)
[2022-03-23] MEDS ORDERED: CARVEDILOL12.5 MG PO (19:23)
[2022-03-23] MEDS ORDERED: GLIPIZIDE5 MG PO (19:25)
[2022-03-23] MEDS ORDERED: LYRICA50 MG PO (19:28)
[2022-03-23] MEDS ORDERED: HYDROCODON-ACE1 EAC9 PO (19:32)
[2022-03-23] MEDS ORDERED: MELATONIN3 MG PO (19:33)
[2022-03-23] MEDS ORDERED: CLONIDINE HCL0.1 MG PO (19:40)
[2022-03-23] MEDS ORDERED: ACETAMINOPHEN325 M1 PO ×2 (19:40→19:41)
[2022-03-23] MEDS: ATORVASTATIN 20 MG TAB PO SCH (21:35)
[2022-03-24] VITALS (32 sets, daily range): BP systolic 110–160; BP diastolic 33–148
[2022-03-24] MEDS: INSULIN LISPRO 100 UNIT/1 ML 3ML VIAL SQ SCH ×4 (08:01→21:22)
[2022-03-24] MEDS: PANTOPRAZOLE SOD 40 MG TABEC PO SCH (08:03)
[2022-03-24 08:10] LABS: BASOPHILS % 0.1 % (0.0-1.0); HEMATOCRIT 27.6 % (38.2-49.6); HEMOGLOBIN 8.5 g/dL (14.0-18.0); LYMPHOCYTES # (AUTO) 0.3 (1.0-3.2); LYMPHOCYTES % 3.3 % (18.0-39.1); MEAN CORPUSCULAR HEMOGLOBIN 28.2 pg (28-32); MEAN CORPUSCULAR HGB CONC 30.8 g/dL (31-35); MEAN CORPUSCULAR VOLUME 91.7 fL (81-99); MONOCYTES # (AUTO) 0.7 (0.2-0.8); MONOCYTES % 8.6 % (4.4-11.3); NEUTROPHILS # (AUTO) 6.9 (2.1-6.9); NEUTROPHILS % 87.4 % (38.7-80.0); PLATELET COUNT 243 x10e3/uL (140-360); RED BLOOD COUNT 3.01 x10e6/uL (4.3-5.7); RED CELL DISTRIBUTION WIDTH 16.3 % (11.7-14.4)
[2022-03-24 08:27] LABS: % IRON SATURATION 16 % (15-50); IRON 29 ug/dL (65-175); TOTAL IRON BINDING CAPACITY 186 ug/dL (261-478); TRANSFERRIN 133 mg/dL (174-364)
[2022-03-24 08:29] LABS: ALBUMIN 2.8 g/dL (3.5-5.0); ALBUMIN/GLOBULIN RATIO 0.7 (0.8-2.0); ANION GAP 21.2 mmol/L (8-16); CALCIUM 8.1 mg/dL (8.4-10.2); CHOL/HDL RATIO 3.3 (3.9-4.7); CREATININE, SERUM 3.48 mg/dL (0.72-1.25); POTASSIUM 5.2 mmol/L (3.5-5.1)
[2022-03-24] MEDS ORDERED: ALBUMIN 25% 12.5GM 0.25 GM/ML BTL IV PRN (10:30)
[2022-03-24] MEDS ORDERED: HEPARIN SOD (PORCINE) 1000 UNIT/ML SDV IV PRN (10:30)
[2022-03-24 19:38] LABS: CREATININE,URINE RANDOM 248.17 mg/dL (63-166); TOTAL PROTEIN, URINE 21.7 mg/dL (1-14)
[2022-03-24] MEDS: ATORVASTATIN 20 MG TAB PO SCH (21:21)
[2022-03-25] VITALS (8 sets, daily range): BP systolic 121–146; BP diastolic 63–80
[2022-03-25 06:20] LABS: ALBUMIN 2.6 g/dL (3.5-5.0); ALBUMIN/GLOBULIN RATIO 0.8 (0.8-2.0); ANION GAP 13.9 mmol/L (8-16); CALCIUM 7.9 mg/dL (8.4-10.2); CREATININE, SERUM 2.11 mg/dL (0.72-1.25); POTASSIUM 3.9 mmol/L (3.5-5.1)
[2022-03-25] MEDS: INSULIN LISPRO 100 UNIT/1 ML 3ML VIAL SQ SCH ×4 (07:30→21:01)
[2022-03-25] MEDS: PANTOPRAZOLE SOD 40 MG TABEC PO SCH (10:20)
[2022-03-25] MEDS ORDERED: SODIUM CHLORIDE 0.9% 500ML 500 ML ONE (10:30)
[2022-03-25] MEDS ORDERED: ONDANSETRON HCL 4 MG ORAL DISINTEGRATING TAB PO PRN (13:15)
[2022-03-25] MEDS: ATORVASTATIN 20 MG TAB PO SCH (20:52)
[2022-03-26 05:09] VITALS: BP 143/72
[2022-03-26 06:30] LABS: ALBUMIN 2.6 g/dL (3.5-5.0); ALBUMIN/GLOBULIN RATIO 0.9 (0.8-2.0); CREATININE, SERUM 1.74 mg/dL (0.72-1.25)
[2022-03-26] MEDS: INSULIN LISPRO 100 UNIT/1 ML 3ML VIAL SQ SCH ×4 (07:58→21:22)
[2022-03-26 08:00] VITALS: BP 153/75
[2022-03-26] MEDS: PANTOPRAZOLE SOD 40 MG TABEC PO SCH (08:11)
[2022-03-26 08:57] VITALS: BP 143/72
[2022-03-26] MEDS ORDERED: AZITHROMYCIN 250 MG TAB PO SCH (10:00)
[2022-03-26 11:38] VITALS: BP 148/85
[2022-03-26 16:03] VITALS: BP 141/67
[2022-03-26 19:50] VITALS: BP 135/66
[2022-03-26] MEDS: ATORVASTATIN 20 MG TAB PO SCH (21:14)
[2022-03-27] VITALS (7 sets, daily range): BP systolic 141–160; BP diastolic 65–84
[2022-03-27 05:06] LABS: BASOPHILS % 0.2 % (0.0-1.0); EOSINOPHILS # (AUTO) 0.3 (0.0-0.4); EOSINOPHILS % 3.1 % (0.0-6.0); HEMATOCRIT 28.6 % (38.2-49.6); HEMOGLOBIN 8.6 g/dL (14.0-18.0); LYMPHOCYTES # (AUTO) 0.9 (1.0-3.2); LYMPHOCYTES % 9.7 % (18.0-39.1); MEAN CORPUSCULAR HEMOGLOBIN 27.6 pg (28-32); MEAN CORPUSCULAR HGB CONC 30.1 g/dL (31-35); MEAN CORPUSCULAR VOLUME 91.7 fL (81-99); MONOCYTES # (AUTO) 0.8 (0.2-0.8); MONOCYTES % 9.3 % (4.4-11.3); NEUTROPHILS # (AUTO) 6.7 (2.1-6.9); PLATELET COUNT 229 x10e3/uL (140-360); RED BLOOD COUNT 3.12 x10e6/uL (4.3-5.7); RED CELL DISTRIBUTION WIDTH 16.8 % (11.7-14.4)
[2022-03-27 05:46] LABS: ANION GAP 12.9 mmol/L (8-16); CALCIUM 7.8 mg/dL (8.4-10.2); CREATININE, SERUM 1.5 mg/dL (0.72-1.25); POTASSIUM 3.9 mmol/L (3.5-5.1)
[2022-03-27] MEDS: PANTOPRAZOLE SOD 40 MG TABEC PO SCH (08:03)
[2022-03-27] MEDS: INSULIN LISPRO 100 UNIT/1 ML 3ML VIAL SQ SCH ×4 (08:25→21:00)
[2022-03-27] MEDS: NIFEDIPINE CR 30 MG TAB PO SCH (14:04)
[2022-03-27] MEDS: ATORVASTATIN 20 MG TAB PO SCH (21:18)
[2022-03-28] VITALS (9 sets, daily range): BP systolic 129–159; BP diastolic 62–88
[2022-03-28] MEDS: INSULIN LISPRO 100 UNIT/1 ML 3ML VIAL SQ SCH ×4 (07:30→21:00)
[2022-03-28] MEDS: PANTOPRAZOLE SOD 40 MG TABEC PO SCH (09:27)
[2022-03-28] MEDS: NIFEDIPINE CR 30 MG TAB PO SCH (09:28)
[2022-03-28] MEDS: ATORVASTATIN 20 MG TAB PO SCH (21:37)
[2022-03-29] VITALS (8 sets, daily range): BP systolic 133–152; BP diastolic 63–73
[2022-03-29 05:53] LABS: BASOPHILS % 0.3 % (0.0-1.0); EOSINOPHILS # (AUTO) 0.2 (0.0-0.4); EOSINOPHILS % 2.9 % (0.0-6.0); HEMATOCRIT 29.5 % (38.2-49.6); HEMOGLOBIN 8.7 g/dL (14.0-18.0); LYMPHOCYTES # (AUTO) 0.9 (1.0-3.2); LYMPHOCYTES % 10.7 % (18.0-39.1); MEAN CORPUSCULAR HEMOGLOBIN 27.9 pg (28-32); MEAN CORPUSCULAR HGB CONC 29.5 g/dL (31-35); MEAN CORPUSCULAR VOLUME 94.6 fL (81-99); MONOCYTES # (AUTO) 0.8 (0.2-0.8); MONOCYTES % 10.2 % (4.4-11.3); NEUTROPHILS % 75.4 % (38.7-80.0); PLATELET COUNT 218 x10e3/uL (140-360); RED BLOOD COUNT 3.12 x10e6/uL (4.3-5.7); RED CELL DISTRIBUTION WIDTH 16.5 % (11.7-14.4)
[2022-03-29 06:11] LABS: ANION GAP 12.3 mmol/L (8-16); CALCIUM 8.3 mg/dL (8.4-10.2); CREATININE, SERUM 1.36 mg/dL (0.72-1.25); POTASSIUM 4.3 mmol/L (3.5-5.1)
[2022-03-29] MEDS: NIFEDIPINE CR 30 MG TAB PO SCH (08:43)
[2022-03-29] MEDS: PANTOPRAZOLE SOD 40 MG TABEC PO SCH (08:43)
[2022-03-29] MEDS: INSULIN LISPRO 100 UNIT/1 ML 3ML VIAL SQ SCH ×4 (08:56→21:00)
[2022-03-29] MEDS ORDERED: BENZONATATE 100 MG CAP PO PRN (16:45)
[2022-03-29] MEDS: DORZOLAMIDE/TIMOLOL (OPTH SOL) 10 ML DRPETTE OP SCH (17:31)
[2022-03-29] MEDS ORDERED: LATANOPROST(OPTH) 2.5 ML BTL OP SCH (21:00)
[2022-03-29] MEDS: ATORVASTATIN 20 MG TAB PO SCH (21:51)
[2022-03-30] VITALS: BP 137/67
[2022-03-30 04:00] VITALS: BP 136/66
[2022-03-30] MEDS: INSULIN LISPRO 100 UNIT/1 ML 3ML VIAL SQ SCH ×2 (07:30→12:01)
[2022-03-30 08:45] VITALS: BP 136/66
[2022-03-30] MEDS: NIFEDIPINE CR 30 MG TAB PO SCH (09:11)
[2022-03-30] MEDS: PANTOPRAZOLE SOD 40 MG TABEC PO SCH (09:11)
[2022-03-30] MEDS: DORZOLAMIDE/TIMOLOL (OPTH SOL) 10 ML DRPETTE OP SCH (09:12)
[2022-03-30 09:19] VITALS: BP 152/74
[2022-03-30 12:23] VITALS: BP 150/73
== END 2022-03-30 14:52 | disposition home health service (06) | DRG 189 ==
LOC: ER 07:55 → ERHOLD 11:37 → ICU 13:52 → MED/SURG3 03-24 21:38
PROVIDERS: ADMIT Internal Medicine; ATTEND Internal Medicine
PROC: 02HV33Z Insertion of Infusion Device into Superior Vena Cava, Percutaneous Approach (ICD-10-PCS; principal; 2022-03-23)
PROC: 5A1D70Z Performance of Urinary Filtration, Intermittent, Less than 6 Hours Per Day (ICD-10-PCS; 2022-03-23)
PROC: 5A0935A Assistance with Respiratory Ventilation, Less than 24 Consecutive Hours, High Flow/Velocity Cannula (ICD-10-PCS; 2022-03-23)
DX: J96.01 Acute respiratory failure with hypoxia (principal); G92.8 Other toxic encephalopathy; N17.9 Acute kidney failure, unspecified; E87.2 Acidosis; K27.9 Peptic ulcer, site unspecified, unspecified as acute or chronic, without hemorrhage or perforation; E87.5 Hyperkalemia; E11.319 Type 2 diabetes mellitus with unspecified diabetic retinopathy without macular edema; Z20.822 Contact with and (suspected) exposure to COVID-19; E11.22 Type 2 diabetes mellitus with diabetic chronic kidney disease; I12.9 Hypertensive chronic kidney disease with stage 1 through stage 4 chronic kidney disease, or unspecified chronic kidney disease; N18.32 Chronic kidney disease, stage 3b; T36.1X5A Adverse effect of cephalosporins and other beta-lactam antibiotics, initial encounter; D63.8 Anemia in other chronic diseases classified elsewhere; H54.7 Unspecified visual loss
CPT/HCPCS: 36415; 36600; 70450; 71045; 76770; 80048; 80053; 80061; 81001; 82550; 82553; 82570; 82805; 82948; 83540; 83605; 83735; 83880; 84156; 84466; 84484; 85025; 85610; 85730; 86704; 86706; 87040; 87086; 87340; 93005; 93971; 94640; 94660; 94799; 96372; 99251; 99285; J0456; J0692; J1644; J1817; J1940; J2001; J2150; J7030; J7040; J7050; J7799

== ENCOUNTER 2022-08-26 15:00 | Inpatient (IN) | payer MEDICARE ==
[~2022-08-26] VITALS: Ht 185.4 cm; Wt 121.6 kg
[~2022-08-26 15:00] MED LIST changes: +ACETAMINOPHEN325 M1 PO; +CARVEDILOL12.5 MG PO; +CLONIDINE HCL0.1 MG PO; +FENTANYL CITRATE/PF 100MCG/2 ML INJ ONE; +GLIPIZIDE5 MG PO; +HYDROCODON-ACE1 EAC9 PO; +LIDOCAINE HCL 2% LOCAL INJ 5 ML SDV VIAL INJ ONE; +LYRICA50 MG PO; +MELATONIN3 MG PO; +MIDAZOLAM HCL 2 MG/2 ML VIAL ONE; +ONDANSETRON HCL INJ 2MG/ML 2ML 2 MG/ML VIAL ONE; +POVIDONE IODINE 0.05% 0.05 % ML PO ONE; +PROPOFOL IV EMULSION 10 MG/ML 20 ML VIAL ONE; +SEVOFLURANE INHAL SOLN 250 ML PEN BTL ONE
[2022-08-26 15:43] LABS: BASOPHILS % 0.2 % (0.0-1.0); EOSINOPHILS % 0.2 % (0.0-6.0); HEMATOCRIT 31.8 % (38.2-49.6); HEMOGLOBIN 10.1 g/dL (14.0-18.0); LYMPHOCYTES # (AUTO) 0.9 (1.0-3.2); LYMPHOCYTES % 4.5 % (18.0-39.1); MEAN CORPUSCULAR HGB CONC 31.8 g/dL (31-35); MONOCYTES # (AUTO) 1.8 (0.2-0.8); MONOCYTES % 9.2 % (4.4-11.3); NEUTROPHILS # (AUTO) 16.5 (2.1-6.9); NEUTROPHILS % 84.7 % (38.7-80.0); PLATELET COUNT 325 x10e3/uL (140-360); RED BLOOD COUNT 3.74 x10e6/uL (4.3-5.7); RED CELL DISTRIBUTION WIDTH 16.2 % (11.7-14.4)
[2022-08-26] MEDS ORDERED: SODIUM CHLORIDE 0.9% 1000ML 500 ML IV ONE (16:45)
[2022-08-26] MEDS ORDERED: SODIUM CHLORIDE 0.9% 500ML 500 ML ONE (16:50)
[2022-08-26 17:43] LABS: ALBUMIN 2.1 g/dL (3.5-5.0); ALBUMIN/GLOBULIN RATIO 0.4 (0.8-2.0); ANION GAP 25.9 mmol/L (8-16); CALCIUM 9.4 mg/dL (8.4-10.2); CREATININE, SERUM 6.25 mg/dL (0.72-1.25); POTASSIUM 4.9 mmol/L (3.5-5.1)
[2022-08-26 17:49] LABS: CREATINE KINASE MB 1.6 ng/mL (0-5.0)
[2022-08-26] MEDS ORDERED: ONDANSETRON HCL INJ 2MG/ML 2ML 2 MG/ML VIAL IV PRN (18:00)
[2022-08-26] MEDS ORDERED: SODIUM CHLORIDE FLUSH 10 ML SYR INJ PRN (18:00)
[2022-08-26 20:00] VITALS: BP 90/53
[2022-08-26] MEDS ORDERED: DEXTROSE 50% SYRINGE 50 ML IV PRN (21:15)
[2022-08-26] MEDS: INSULIN LISPRO 100 UNIT/1 ML 3ML VIAL SQ SCH (22:05)
[2022-08-27] VITALS (7 sets, daily range): BP systolic 80–102; BP diastolic 36–80
[2022-08-27] MEDS ORDERED: SODIUM CHLORIDE 0.9% 1000ML 500 ML IV ONE (04:30)
[2022-08-27 05:03] LABS: BASOPHILS % 0.2 % (0.0-1.0); EOSINOPHILS % 0.1 % (0.0-6.0); HEMATOCRIT 29.1 % (38.2-49.6); HEMOGLOBIN 9.2 g/dL (14.0-18.0); LYMPHOCYTES # (AUTO) 0.5 (1.0-3.2); LYMPHOCYTES % 2.3 % (18.0-39.1); MEAN CORPUSCULAR HEMOGLOBIN 26.4 pg (28-32); MEAN CORPUSCULAR HGB CONC 31.6 g/dL (31-35); MEAN CORPUSCULAR VOLUME 83.6 fL (81-99); MONOCYTES # (AUTO) 1.9 (0.2-0.8); MONOCYTES % 8.2 % (4.4-11.3); NEUTROPHILS # (AUTO) 20.4 (2.1-6.9); NEUTROPHILS % 87.6 % (38.7-80.0); PLATELET COUNT 310 x10e3/uL (140-360); RED BLOOD COUNT 3.48 x10e6/uL (4.3-5.7)
[2022-08-27 05:23] LABS: CREATINE KINASE MB 1.2 ng/mL (0-5.0)
[2022-08-27 05:47] LABS: ALBUMIN 2.1 g/dL (3.5-5.0); ALBUMIN/GLOBULIN RATIO 0.4 (0.8-2.0); ANION GAP 25.1 mmol/L (8-16); CALCIUM 9.7 mg/dL (8.4-10.2); CREATININE, SERUM 6.88 mg/dL (0.72-1.25); POTASSIUM 5.1 mmol/L (3.5-5.1)
[2022-08-27 06:42] LABS: BAND NEUTROPHILS % (MANUAL) 3 %; LYMPHOCYTES % (MANUAL) 3 % (19-48); MONOCYTES % (MANUAL) 9 % (3.4-9.0); NEUTROPHILS % (MANUAL) 85 % (40-74)
[2022-08-27 06:44] LABS: HYPOCHROMASIA SLIGHT; PLATELET ESTIMATE ADEQUATE; PLATELET MORPHOLOGY COMMENT NORMAL; RBC MORPHOLOGY COMMENT NORMAL
[2022-08-27] MEDS ORDERED: INSULIN LISPRO 100 UNIT/1 ML 3ML VIAL SQ SCH (07:30)
[2022-08-27] MEDS: INSULIN LISPRO 100 UNIT/1 ML 3ML VIAL SQ SCH ×4 (07:30→21:58)
[2022-08-27] MEDS ORDERED: Vancomycin IV 1 GM in SODIUM CHLORIDE 0.9% 250ML 250 ML IV ONE (08:30)
[2022-08-27] MEDS: SODIUM BICARBONATE 650 MG TAB PO SCH (10:04)
[2022-08-27] MEDS: SODIUM CHLORIDE 0.9% 1000ML 1,000 ML IV SCH ×2 (10:04→17:40)
[2022-08-27] MEDS: PANTOPRAZOLE SOD 40 MG TABEC PO SCH ×2 (10:04→16:53)
[2022-08-27 10:50] LABS: CREATINE KINASE MB 1.4 ng/mL (0-5.0)
[2022-08-27] MEDS: ACETAMINOPHEN 325 MG TAB PO PRN (13:04)
[2022-08-27 13:26] LABS: % IRON SATURATION 14 % (15-50); IRON 17 ug/dL (65-175); TOTAL IRON BINDING CAPACITY 118 ug/dL (261-478); TRANSFERRIN 84 mg/dL (174-364)
[2022-08-27 13:50] LABS: INR 1.8; PROTHROMBIN TIME 21.1 seconds (11.9-14.5)
[2022-08-27 14:29] LABS: CREATINE KINASE MB 1.1 ng/mL (0-5.0)
[2022-08-27] MEDS: IRON SUCROSE 100 MG in SODIUM CHLORIDE 0.9% 100 ML IV SCH (21:45)
[2022-08-27] MEDS: ATORVASTATIN 20 MG TAB PO SCH (21:46)
[2022-08-28] VITALS (8 sets, daily range): BP systolic 87–101; BP diastolic 41–55
[2022-08-28] MEDS: SODIUM CHLORIDE 0.9% 1000ML 1,000 ML IV SCH ×2 (06:22→17:51)
[2022-08-28 06:23] LABS: BASOPHILS # (AUTO) 0.1 (0.0-0.1); BASOPHILS % 0.6 % (0.0-1.0); EOSINOPHILS # (AUTO) 0.2 (0.0-0.4); EOSINOPHILS % 2.2 % (0.0-6.0); HEMATOCRIT 36.5 % (38.2-49.6); HEMOGLOBIN 11.9 g/dL (14.0-18.0); LYMPHOCYTES # (AUTO) 1.7 (1.0-3.2); LYMPHOCYTES % 17.3 % (18.0-39.1); MEAN CORPUSCULAR HEMOGLOBIN 32.4 pg (28-32); MEAN CORPUSCULAR HGB CONC 32.6 g/dL (31-35); MEAN CORPUSCULAR VOLUME 99.5 fL (81-99); MONOCYTES % 10.8 % (4.4-11.3); NEUTROPHILS # (AUTO) 6.6 (2.1-6.9); NEUTROPHILS % 68.8 % (38.7-80.0); PLATELET COUNT 260 x10e3/uL (140-360); RED BLOOD COUNT 3.67 x10e6/uL (4.3-5.7); RED CELL DISTRIBUTION WIDTH 12.1 % (11.7-14.4)
[2022-08-28 06:25] LABS: PROTHROMBIN TIME 13.4 seconds (11.9-14.5)
[2022-08-28 06:42] LABS: ALBUMIN 2.8 g/dL (3.5-5.0); ALBUMIN/GLOBULIN RATIO 0.8 (0.8-2.0); ANION GAP 14.3 mmol/L (8-16); CALCIUM 8.1 mg/dL (8.4-10.2); CREATININE, SERUM 0.83 mg/dL (0.72-1.25); POTASSIUM 4.3 mmol/L (3.5-5.1)
[2022-08-28] MEDS: PANTOPRAZOLE SOD 40 MG TABEC PO SCH ×2 (07:30→17:52)
[2022-08-28] MEDS: INSULIN LISPRO 100 UNIT/1 ML 3ML VIAL SQ SCH ×4 (07:30→21:34)
[2022-08-28] MEDS ORDERED: SODIUM CHLORIDE 0.9% 250ML 250 ML ONE ×2 (08:45→11:25)
[2022-08-28] MEDS ORDERED: LIDOCAINE 1% 10 ML MULTIDOSE VIAL IJ ONE (08:45)
[2022-08-28] MEDS: SODIUM BICARBONATE 650 MG TAB PO SCH (09:00)
[2022-08-28] MEDS: BALSAM PERU/CASTOR OIL 60 GM OINT...G. TP SCH (10:54)
[2022-08-28] MEDS ORDERED: FENTANYL CITRATE/PF 100MCG/2 ML INJ ONE (11:24)
[2022-08-28] MEDS ORDERED: MIDAZOLAM HCL 2 MG/2 ML VIAL ONE (11:24)
[2022-08-28] MEDS ORDERED: HEPARIN SOD (PORCINE) 1000 UNIT/ML SDV ONE ×2 (11:24→15:15)
[2022-08-28 13:56] LABS: BASOPHILS # (AUTO) 0.1 (0.0-0.1); BASOPHILS % 0.4 % (0.0-1.0); EOSINOPHILS # (AUTO) 0.1 (0.0-0.4); EOSINOPHILS % 0.5 % (0.0-6.0); HEMATOCRIT 26.7 % (38.2-49.6); HEMOGLOBIN 8.2 g/dL (14.0-18.0); LYMPHOCYTES # (AUTO) 0.6 (1.0-3.2); LYMPHOCYTES % 3.8 % (18.0-39.1); MEAN CORPUSCULAR HGB CONC 30.7 g/dL (31-35); MEAN CORPUSCULAR VOLUME 84.8 fL (81-99); MONOCYTES # (AUTO) 1.4 (0.2-0.8); MONOCYTES % 8.3 % (4.4-11.3); NEUTROPHILS # (AUTO) 13.1 (2.1-6.9); NEUTROPHILS % 80.1 % (38.7-80.0); PLATELET COUNT 362 x10e3/uL (140-360); RED BLOOD COUNT 3.15 x10e6/uL (4.3-5.7); RED CELL DISTRIBUTION WIDTH 16.6 % (11.7-14.4)
[2022-08-28 14:19] LABS: ALBUMIN 1.8 g/dL (3.5-5.0); ALBUMIN/GLOBULIN RATIO 0.4 (0.8-2.0); ANION GAP 23.8 mmol/L (8-16); CALCIUM 8.7 mg/dL (8.4-10.2); CREATININE, SERUM 7.41 mg/dL (0.72-1.25); POTASSIUM 4.8 mmol/L (3.5-5.1)
[2022-08-28] MEDS ORDERED: SODIUM CHLORIDE 0.9% 1000ML 1,000 ML ONE (14:32)
[2022-08-28] MEDS ORDERED: SODIUM CHLORIDE 0.9% 1000ML 2,000 ML IV PRN (15:15)
[2022-08-28] MEDS ORDERED: HEPARIN SOD (PORCINE) 1000 UNIT/ML SDV IV PRN (15:15)
[2022-08-28] MEDS ORDERED: MANNITOL 25% 12.5GM/50 ML VIAL IV PRN (15:15)
[2022-08-28] MEDS ORDERED: SODIUM CHLORIDE 0.9% IV SCH (16:00)
[2022-08-28] MEDS ORDERED: DAPTOMYCIN IV SCH (16:00)
[2022-08-28] MEDS ORDERED: Vancomycin IV 1 GM in SODIUM CHLORIDE 0.9% 250ML 250 ML IV ONE (16:00)
[2022-08-28] MEDS: ATORVASTATIN 20 MG TAB PO SCH (21:28)
[2022-08-28] MEDS: IRON SUCROSE 100 MG in SODIUM CHLORIDE 0.9% 100 ML IV SCH (22:17)
[2022-08-29] VITALS (8 sets, daily range): BP systolic 100–109; BP diastolic 48–59
[2022-08-29] MEDS: SODIUM CHLORIDE 0.9% 1000ML 1,000 ML IV SCH ×2 (02:01→10:24)
[2022-08-29] MEDS: ACETAMINOPHEN 325 MG TAB PO PRN (04:02)
[2022-08-29 06:43] LABS: ALBUMIN 1.9 g/dL (3.5-5.0); ALBUMIN/GLOBULIN RATIO 0.4 (0.8-2.0); ANION GAP 22.4 mmol/L (8-16); CALCIUM 8.6 mg/dL (8.4-10.2); CREATININE, SERUM 6.33 mg/dL (0.72-1.25); POTASSIUM 4.4 mmol/L (3.5-5.1)
[2022-08-29] MEDS: INSULIN LISPRO 100 UNIT/1 ML 3ML VIAL SQ SCH ×4 (07:30→21:00)
[2022-08-29] MEDS: PANTOPRAZOLE SOD 40 MG TABEC PO SCH ×2 (08:30→17:17)
[2022-08-29] MEDS: SODIUM BICARBONATE 650 MG TAB PO SCH (09:56)
[2022-08-29] MEDS: BALSAM PERU/CASTOR OIL 60 GM OINT...G. TP SCH (09:56)
[2022-08-29] MEDS ORDERED: SODIUM CHLORIDE 0.9% 1000ML 1,000 ML ONE (10:24)
[2022-08-29] MEDS: IRON SUCROSE 100 MG in SODIUM CHLORIDE 0.9% 100 ML IV SCH (20:47)
[2022-08-29] MEDS: ATORVASTATIN 20 MG TAB PO SCH (20:48)
[2022-08-29] MEDS: INSULIN GLARGINE 100 UNITS/ML VIAL SQ SCH (21:00)
[2022-08-30] VITALS (8 sets, daily range): BP systolic 116–129; BP diastolic 43–65
[2022-08-30 07:04] LABS: BASOPHILS # (AUTO) 0.1 (0.0-0.1); BASOPHILS % 0.5 % (0.0-1.0); EOSINOPHILS % 0.3 % (0.0-6.0); HEMOGLOBIN 7.6 g/dL (14.0-18.0); LYMPHOCYTES # (AUTO) 0.6 (1.0-3.2); LYMPHOCYTES % 5.1 % (18.0-39.1); MEAN CORPUSCULAR HEMOGLOBIN 26.1 pg (28-32); MEAN CORPUSCULAR HGB CONC 31.7 g/dL (31-35); MEAN CORPUSCULAR VOLUME 82.5 fL (81-99); MONOCYTES # (AUTO) 1.2 (0.2-0.8); MONOCYTES % 9.6 % (4.4-11.3); NEUTROPHILS # (AUTO) 9.4 (2.1-6.9); NEUTROPHILS % 75.7 % (38.7-80.0); PLATELET COUNT 383 x10e3/uL (140-360); RED BLOOD COUNT 2.91 x10e6/uL (4.3-5.7)
[2022-08-30 07:35] LABS: ANION GAP 18.1 mmol/L (8-16); CALCIUM 8.7 mg/dL (8.4-10.2); CREATININE, SERUM 4.61 mg/dL (0.72-1.25); POTASSIUM 4.1 mmol/L (3.5-5.1)
[2022-08-30] MEDS: INSULIN LISPRO 100 UNIT/1 ML 3ML VIAL SQ SCH ×4 (08:00→20:51)
[2022-08-30] MEDS: PANTOPRAZOLE SOD 40 MG TABEC PO SCH ×2 (08:00→17:30)
[2022-08-30 08:41] LABS: BAND NEUTROPHILS % (MANUAL) 5 %; LYMPHOCYTES % (MANUAL) 6 % (19-48); NEUTROPHILS % (MANUAL) 79 % (40-74)
[2022-08-30 08:42] LABS: HYPOCHROMASIA SLIGHT; MONOCYTES % (MANUAL) 9 % (3.4-9.0); MYELOCYTES % (MANUAL) 1 % (0-0)
[2022-08-30 08:43] LABS: ANISOCYTOSIS SLIGHT; PLATELET ESTIMATE SLIGHTLY INCREASED; PLATELET MORPHOLOGY COMMENT NORMAL; RBC MORPHOLOGY COMMENT NORMAL
[2022-08-30] MEDS: SODIUM BICARBONATE 650 MG TAB PO SCH (08:59)
[2022-08-30] MEDS: BALSAM PERU/CASTOR OIL 60 GM OINT...G. TP SCH (09:00)
[2022-08-30 17:06] LABS: CLARITY,URINE CLOUDY (CLEAR); KETONES,URINE 1+ (NEGATIVE); LEUKOCYTE ESTERASE ,URINE 1+ (NEGATIVE); NITRITE,URINE NEGATIVE (NEGATIVE); PROTEIN,URINE DIPSTICK 2+ (NEGATIVE); URINE UROBILINOGEN 0.2 mg/dL (0.2 - 1)
[2022-08-30 17:12] LABS: COLOR,URINE AMBER (YELLOW); WBC,URINE (MAN) 21-50 /HPF (0-5)
[2022-08-30 17:13] LABS: AMORPHOUS SEDIMENT,URINE MANY (FEW); BACTERIA,URINE MANY /HPF; EPITHELIAL CELLS,URINE FEW /LPF; MUCUS,URINE MANY (RARE); RBC,URINE >50 /HPF (0-5)
[2022-08-30] MEDS: INSULIN GLARGINE 100 UNITS/ML VIAL SQ SCH (20:52)
[2022-08-30] MEDS: ATORVASTATIN 20 MG TAB PO SCH (21:03)
[2022-08-31] VITALS (7 sets, daily range): BP systolic 115–145; BP diastolic 49–59
[2022-08-31 06:29] LABS: BASOPHILS # (AUTO) 0.1 (0.0-0.1); BASOPHILS % 0.4 % (0.0-1.0); EOSINOPHILS % 0.3 % (0.0-6.0); HEMATOCRIT 24.8 % (38.2-49.6); HEMOGLOBIN 7.8 g/dL (14.0-18.0); LYMPHOCYTES # (AUTO) 0.9 (1.0-3.2); LYMPHOCYTES % 5.5 % (18.0-39.1); MEAN CORPUSCULAR HEMOGLOBIN 26.2 pg (28-32); MEAN CORPUSCULAR HGB CONC 31.5 g/dL (31-35); MEAN CORPUSCULAR VOLUME 83.2 fL (81-99); MONOCYTES # (AUTO) 1.3 (0.2-0.8); MONOCYTES % 8.4 % (4.4-11.3); NEUTROPHILS # (AUTO) 11.9 (2.1-6.9); NEUTROPHILS % 76.5 % (38.7-80.0); PLATELET COUNT 400 x10e3/uL (140-360); RED BLOOD COUNT 2.98 x10e6/uL (4.3-5.7); RED CELL DISTRIBUTION WIDTH 16.2 % (11.7-14.4)
[2022-08-31 06:52] LABS: CALCIUM 8.5 mg/dL (8.4-10.2); CREATININE, SERUM 5.38 mg/dL (0.72-1.25)
[2022-08-31] MEDS: INSULIN LISPRO 100 UNIT/1 ML 3ML VIAL SQ SCH ×4 (07:30→20:55)
[2022-08-31] MEDS: PANTOPRAZOLE SOD 40 MG TABEC PO SCH ×2 (07:30→14:21)
[2022-08-31 08:31] LABS: LYMPHOCYTES % (MANUAL) 9 % (19-48); METAMYELOCYTES % (MANUAL) 1 % (0-0); MONOCYTES % (MANUAL) 7 % (3.4-9.0); MYELOCYTES % (MANUAL) 2 % (0-0); NEUTROPHILS % (MANUAL) 81 % (40-74)
[2022-08-31 08:32] LABS: PLATELET ESTIMATE ADEQUATE; PLATELET MORPHOLOGY COMMENT NORMAL; RBC MORPHOLOGY COMMENT NORMAL
[2022-08-31] MEDS ORDERED: SODIUM CHLORIDE 0.9% 250ML 250 ML IV ONE (08:45)
[2022-08-31] MEDS ORDERED: ALBUMIN 25% 12.5GM 0.25 GM/ML BTL IV PRN (09:00)
[2022-08-31] MEDS ORDERED: HEPARIN SOD (PORCINE) 1000 UNIT/ML SDV IV PRN (09:00)
[2022-08-31] MEDS: SODIUM BICARBONATE 650 MG TAB PO SCH (14:21)
[2022-08-31] MEDS: BALSAM PERU/CASTOR OIL 60 GM OINT...G. TP SCH (14:23)
[2022-08-31] MEDS: ATORVASTATIN 20 MG TAB PO SCH (20:52)
[2022-08-31] MEDS: INSULIN GLARGINE 100 UNITS/ML VIAL SQ SCH (20:56)
[2022-09-01] VITALS (7 sets, daily range): BP systolic 122–157; BP diastolic 52–75
[2022-09-01 06:02] LABS: BASOPHILS # (AUTO) 0.1 (0.0-0.1); BASOPHILS % 0.6 % (0.0-1.0); EOSINOPHILS # (AUTO) 0.1 (0.0-0.4); EOSINOPHILS % 0.4 % (0.0-6.0); HEMATOCRIT 26.9 % (38.2-49.6); HEMOGLOBIN 8.9 g/dL (14.0-18.0); LYMPHOCYTES # (AUTO) 0.8 (1.0-3.2); LYMPHOCYTES % 5.7 % (18.0-39.1); MEAN CORPUSCULAR HEMOGLOBIN 26.3 pg (28-32); MEAN CORPUSCULAR HGB CONC 33.1 g/dL (31-35); MEAN CORPUSCULAR VOLUME 79.6 fL (81-99); MONOCYTES # (AUTO) 1.2 (0.2-0.8); MONOCYTES % 8.4 % (4.4-11.3); NEUTROPHILS # (AUTO) 11.2 (2.1-6.9); PLATELET COUNT 362 x10e3/uL (140-360); RED BLOOD COUNT 3.38 x10e6/uL (4.3-5.7); RED CELL DISTRIBUTION WIDTH 16.3 % (11.7-14.4)
[2022-09-01 06:21] LABS: ALBUMIN 1.7 g/dL (3.5-5.0); ALBUMIN/GLOBULIN RATIO 0.4 (0.8-2.0); ANION GAP 13.5 mmol/L (8-16); CALCIUM 8.6 mg/dL (8.4-10.2); CREATININE, SERUM 3.36 mg/dL (0.72-1.25); POTASSIUM 3.5 mmol/L (3.5-5.1)
[2022-09-01] MEDS: PANTOPRAZOLE SOD 40 MG TABEC PO SCH ×2 (08:22→16:03)
[2022-09-01] MEDS: SODIUM BICARBONATE 650 MG TAB PO SCH (08:22)
[2022-09-01] MEDS: INSULIN LISPRO 100 UNIT/1 ML 3ML VIAL SQ SCH ×4 (08:30→20:56)
[2022-09-01] MEDS: BALSAM PERU/CASTOR OIL 60 GM OINT...G. TP SCH (08:30)
[2022-09-01 09:29] LABS: BAND NEUTROPHILS % (MANUAL) 2 %; LYMPHOCYTES % (MANUAL) 8 % (19-48); MONOCYTES % (MANUAL) 5 % (3.4-9.0); MYELOCYTES % (MANUAL) 7 % (0-0); NEUTROPHILS % (MANUAL) 78 % (40-74); PLATELET ESTIMATE ADEQUATE; PLATELET MORPHOLOGY COMMENT NORMAL; RBC MORPHOLOGY COMMENT NORMAL
[2022-09-01] MEDS: ATORVASTATIN 20 MG TAB PO SCH (20:36)
[2022-09-01] MEDS: INSULIN GLARGINE 100 UNITS/ML VIAL SQ SCH (21:00)
[2022-09-02] VITALS (8 sets, daily range): BP systolic 133–153; BP diastolic 57–73
[2022-09-02] MEDS: PANTOPRAZOLE SOD 40 MG TABEC PO SCH ×2 (07:30→16:26)
[2022-09-02] MEDS: INSULIN LISPRO 100 UNIT/1 ML 3ML VIAL SQ SCH ×4 (07:30→21:00)
[2022-09-02] MEDS ORDERED: IRON325 M1 PEG (08:34)
[2022-09-02] MEDS ORDERED: METOPROLOL TAR100 MG PO (08:34)
[2022-09-02] MEDS ORDERED: ELIQUIS5 MG PO (08:34)
[2022-09-02] MEDS: BALSAM PERU/CASTOR OIL 60 GM OINT...G. TP SCH (09:00)
[2022-09-02] MEDS: SODIUM BICARBONATE 650 MG TAB PO SCH (09:00)
[2022-09-02 09:15] LABS: ANION GAP 15.4 mmol/L (8-16); CALCIUM 8.7 mg/dL (8.4-10.2); CREATININE, SERUM 3.91 mg/dL (0.72-1.25); POTASSIUM 3.4 mmol/L (3.5-5.1)
[2022-09-02] MEDS ORDERED: BENZOCAINE 20% SPR 60 ML CAN ONE (10:08)
[2022-09-02] MEDS ORDERED: MIDAZOLAM HCL 2 MG/2 ML VIAL ONE ×2 (10:08→10:38)
[2022-09-02] MEDS ORDERED: SODIUM CHLORIDE 0.9% 1000ML 1,000 ML ONE (10:08)
[2022-09-02] MEDS ORDERED: FENTANYL CITRATE/PF 100MCG/2 ML INJ ONE (10:08)
[2022-09-02] MEDS ORDERED: ONDANSETRON HCL 4 MG ORAL DISINTEGRATING TAB PO PRN (14:30)
[2022-09-02] MEDS: INSULIN GLARGINE 100 UNITS/ML VIAL SQ SCH (21:00)
[2022-09-02] MEDS: ATORVASTATIN 20 MG TAB PO SCH (21:33)
[2022-09-03] VITALS (10 sets, daily range): BP systolic 117–148; BP diastolic 61–82
[2022-09-03 06:01] LABS: BASOPHILS # (AUTO) 0.1 (0.0-0.1); BASOPHILS % 0.4 % (0.0-1.0); EOSINOPHILS # (AUTO) 0.2 (0.0-0.4); EOSINOPHILS % 0.9 % (0.0-6.0); HEMOGLOBIN 9.2 g/dL (14.0-18.0); LYMPHOCYTES # (AUTO) 1.1 (1.0-3.2); LYMPHOCYTES % 6.2 % (18.0-39.1); MEAN CORPUSCULAR HEMOGLOBIN 26.4 pg (28-32); MEAN CORPUSCULAR HGB CONC 31.7 g/dL (31-35); MEAN CORPUSCULAR VOLUME 83.1 fL (81-99); MONOCYTES # (AUTO) 1.2 (0.2-0.8); MONOCYTES % 6.6 % (4.4-11.3); NEUTROPHILS # (AUTO) 14.3 (2.1-6.9); NEUTROPHILS % 80.7 % (38.7-80.0); PLATELET COUNT 304 x10e3/uL (140-360); RED BLOOD COUNT 3.49 x10e6/uL (4.3-5.7); RED CELL DISTRIBUTION WIDTH 16.8 % (11.7-14.4)
[2022-09-03 06:39] LABS: ANION GAP 15.6 mmol/L (8-16); CALCIUM 8.7 mg/dL (8.4-10.2); CREATININE, SERUM 2.62 mg/dL (0.72-1.25); POTASSIUM 3.6 mmol/L (3.5-5.1)
[2022-09-03] MEDS: PANTOPRAZOLE SOD 40 MG TABEC PO SCH ×2 (07:30→16:53)
[2022-09-03] MEDS: INSULIN LISPRO 100 UNIT/1 ML 3ML VIAL SQ SCH ×4 (07:30→20:38)
[2022-09-03] MEDS ORDERED: SODIUM CHLORIDE 0.9% 250ML 250 ML ONE (08:01)
[2022-09-03] MEDS: BALSAM PERU/CASTOR OIL 60 GM OINT...G. TP SCH (08:20)
[2022-09-03] MEDS ORDERED: HEPARIN SOD (PORCINE) 5,000 UNIT/ML VIAL ONE (09:03)
[2022-09-03] MEDS ORDERED: SODIUM CHLORIDE 0.9% 0 ML ONE (09:17)
[2022-09-03] MEDS: SODIUM BICARBONATE 650 MG TAB PO SCH ×2 (12:09→12:24)
[2022-09-03] MEDS: HYDROCODONE/APAP 5MG-325MG TAB PO PRN (12:24)
[2022-09-03] MEDS ORDERED: LIDOCAINE 1% 10 ML MULTIDOSE VIAL IJ ONE (13:39)
[2022-09-03] MEDS: INSULIN GLARGINE 100 UNITS/ML VIAL SQ SCH (20:38)
[2022-09-03] MEDS: ATORVASTATIN 20 MG TAB PO SCH (20:52)
[2022-09-04] VITALS (9 sets, daily range): BP systolic 101–153; BP diastolic 56–76
[2022-09-04] MEDS: PANTOPRAZOLE SOD 40 MG TABEC PO SCH ×2 (07:30→16:15)
[2022-09-04] MEDS: INSULIN LISPRO 100 UNIT/1 ML 3ML VIAL SQ SCH ×4 (07:30→21:00)
[2022-09-04] MEDS ORDERED: LIDOCAINE 1% 10 ML MULTIDOSE VIAL IJ ONE (08:53)
[2022-09-04] MEDS ORDERED: SODIUM CHLORIDE 0.9% 250ML 250 ML ONE (08:53)
[2022-09-04] MEDS ORDERED: HEPARIN SOD (PORCINE) 1000 UNIT/ML SDV ONE (09:41)
[2022-09-04] MEDS: BALSAM PERU/CASTOR OIL 60 GM OINT...G. TP SCH (11:57)
[2022-09-04] MEDS: METOPROLOL SUCCINATE 25 MG TAB XL PO SCH (11:59)
[2022-09-04] MEDS: HYDROCODONE/APAP 5MG-325MG TAB PO PRN ×2 (12:02→16:21)
[2022-09-04] MEDS: INSULIN GLARGINE 100 UNITS/ML VIAL SQ SCH (21:00)
[2022-09-04] MEDS: ATORVASTATIN 20 MG TAB PO SCH (21:17)
[2022-09-05] VITALS (7 sets, daily range): BP systolic 124–147; BP diastolic 45–79
[2022-09-05 05:39] LABS: BASOPHILS % 0.3 % (0.0-1.0); EOSINOPHILS # (AUTO) 0.1 (0.0-0.4); EOSINOPHILS % 1.2 % (0.0-6.0); HEMATOCRIT 25.9 % (38.2-49.6); LYMPHOCYTES # (AUTO) 0.9 (1.0-3.2); LYMPHOCYTES % 7.2 % (18.0-39.1); MEAN CORPUSCULAR HEMOGLOBIN 26.1 pg (28-32); MEAN CORPUSCULAR HGB CONC 30.9 g/dL (31-35); MEAN CORPUSCULAR VOLUME 84.6 fL (81-99); MONOCYTES # (AUTO) 0.9 (0.2-0.8); MONOCYTES % 7.1 % (4.4-11.3); NEUTROPHILS # (AUTO) 9.8 (2.1-6.9); NEUTROPHILS % 82.5 % (38.7-80.0); PLATELET COUNT 257 x10e3/uL (140-360); RED BLOOD COUNT 3.06 x10e6/uL (4.3-5.7); RED CELL DISTRIBUTION WIDTH 16.3 % (11.7-14.4)
[2022-09-05 06:00] LABS: ALBUMIN 1.7 g/dL (3.5-5.0); ALBUMIN/GLOBULIN RATIO 0.4 (0.8-2.0); ANION GAP 15.6 mmol/L (8-16); CALCIUM 8.7 mg/dL (8.4-10.2); CREATININE, SERUM 3.49 mg/dL (0.72-1.25); POTASSIUM 3.6 mmol/L (3.5-5.1)
[2022-09-05] MEDS: PANTOPRAZOLE SOD 40 MG TABEC PO SCH ×2 (08:53→17:05)
[2022-09-05] MEDS: METOPROLOL SUCCINATE 25 MG TAB XL PO SCH (08:53)
[2022-09-05] MEDS: BALSAM PERU/CASTOR OIL 60 GM OINT...G. TP SCH (09:05)
[2022-09-05] MEDS: INSULIN LISPRO 100 UNIT/1 ML 3ML VIAL SQ SCH ×4 (09:05→21:52)
[2022-09-05] MEDS: COLLAGENASE 5 GM TUBE TOP SCH (09:06)
[2022-09-05] MEDS ORDERED: HEPARIN SOD (PORCINE) 1000 UNIT/ML SDV IV PRN (10:30)
[2022-09-05] MEDS: HYDROCODONE/APAP 5MG-325MG TAB PO PRN (18:42)
[2022-09-05] MEDS: ATORVASTATIN 20 MG TAB PO SCH (21:45)
[2022-09-05] MEDS: INSULIN GLARGINE 100 UNITS/ML VIAL SQ SCH (21:53)
[2022-09-06] VITALS (8 sets, daily range): BP systolic 128–167; BP diastolic 51–69
[2022-09-06] MEDS: INSULIN LISPRO 100 UNIT/1 ML 3ML VIAL SQ SCH ×4 (07:30→22:22)
[2022-09-06] MEDS: PANTOPRAZOLE SOD 40 MG TABEC PO SCH ×2 (08:53→17:08)
[2022-09-06] MEDS: METOPROLOL SUCCINATE 25 MG TAB XL PO SCH (08:53)
[2022-09-06] MEDS: COLLAGENASE 5 GM TUBE TOP SCH (08:57)
[2022-09-06] MEDS: BALSAM PERU/CASTOR OIL 60 GM OINT...G. TP SCH (08:57)
[2022-09-06] MEDS: HYDROCODONE/APAP 5MG-325MG TAB PO PRN (13:29)
[2022-09-06] MEDS: ATORVASTATIN 20 MG TAB PO SCH (22:14)
[2022-09-06] MEDS: INSULIN GLARGINE 100 UNITS/ML VIAL SQ SCH (22:21)
[2022-09-07] VITALS (8 sets, daily range): BP systolic 112–167; BP diastolic 59–76
[2022-09-07 06:29] LABS: BASOPHILS % 0.3 % (0.0-1.0); EOSINOPHILS # (AUTO) 0.1 (0.0-0.4); EOSINOPHILS % 1.2 % (0.0-6.0); HEMOGLOBIN 8.1 g/dL (14.0-18.0); LYMPHOCYTES # (AUTO) 0.8 (1.0-3.2); LYMPHOCYTES % 6.8 % (18.0-39.1); MEAN CORPUSCULAR HEMOGLOBIN 28.6 pg (28-32); MEAN CORPUSCULAR HGB CONC 32.4 g/dL (31-35); MEAN CORPUSCULAR VOLUME 88.3 fL (81-99); NEUTROPHILS # (AUTO) 9.8 (2.1-6.9); NEUTROPHILS % 82.9 % (38.7-80.0); PLATELET COUNT 193 x10e3/uL (140-360); RED BLOOD COUNT 2.83 x10e6/uL (4.3-5.7); RED CELL DISTRIBUTION WIDTH 16.8 % (11.7-14.4)
[2022-09-07 06:55] LABS: ANION GAP 13.7 mmol/L (8-16); CREATININE, SERUM 3.22 mg/dL (0.72-1.25); POTASSIUM 3.7 mmol/L (3.5-5.1)
[2022-09-07] MEDS: INSULIN LISPRO 100 UNIT/1 ML 3ML VIAL SQ SCH ×4 (07:30→21:00)
[2022-09-07] MEDS: PANTOPRAZOLE SOD 40 MG TABEC PO SCH ×2 (07:30→17:47)
[2022-09-07] MEDS: BALSAM PERU/CASTOR OIL 60 GM OINT...G. TP SCH (09:00)
[2022-09-07] MEDS: COLLAGENASE 5 GM TUBE TOP SCH (09:00)
[2022-09-07] MEDS: HYDROCODONE/APAP 5MG-325MG TAB PO PRN (09:48)
[2022-09-07] MEDS: METOPROLOL SUCCINATE 25 MG TAB XL PO SCH (09:48)
[2022-09-07] MEDS ORDERED: SODIUM CHLORIDE 0.9% 250ML 250 ML ONE ×2 (09:55→10:54)
[2022-09-07] MEDS ORDERED: LIDOCAINE 1% 10 ML MULTIDOSE VIAL IJ ONE (09:55)
[2022-09-07] MEDS ORDERED: FENTANYL CITRATE/PF 100MCG/2 ML INJ ONE (10:54)
[2022-09-07] MEDS ORDERED: MIDAZOLAM HCL 2 MG/2 ML VIAL ONE (10:54)
[2022-09-07] MEDS ORDERED: HEPARIN SOD (PORCINE) 1000 UNIT/ML SDV ONE ×2 (11:41→15:50)
[2022-09-07] MEDS: INSULIN GLARGINE 100 UNITS/ML VIAL SQ SCH (21:00)
[2022-09-07] MEDS: ATORVASTATIN 20 MG TAB PO SCH ×2 (21:00→21:37)
[2022-09-08 04:00] VITALS: BP 150/64
[2022-09-08] MEDS: INSULIN LISPRO 100 UNIT/1 ML 3ML VIAL SQ SCH ×4 (07:30→20:47)
[2022-09-08 08:00] VITALS: BP 155/72
[2022-09-08] MEDS: METOPROLOL SUCCINATE 25 MG TAB XL PO SCH (09:00)
[2022-09-08] MEDS: BALSAM PERU/CASTOR OIL 60 GM OINT...G. TP SCH (09:10)
[2022-09-08] MEDS: PANTOPRAZOLE SOD 40 MG TABEC PO SCH ×2 (09:10→16:30)
[2022-09-08] MEDS: COLLAGENASE 5 GM TUBE TOP SCH (09:10)
[2022-09-08] MEDS ORDERED: SODIUM CHLORIDE 0.9% 1000ML 2,000 ML IV PRN (09:15)
[2022-09-08] MEDS ORDERED: HEPARIN SOD (PORCINE) 1000 UNIT/ML SDV IV PRN (09:15)
[2022-09-08] MEDS ORDERED: SODIUM CHLORIDE 0.9% 250ML 500 ML IV PRN (09:15)
[2022-09-08 10:04] VITALS: BP 155/72
[2022-09-08 12:26] VITALS: BP 150/81
[2022-09-08 16:43] VITALS: BP 131/72
[2022-09-08 20:00] VITALS: BP 131/57
[2022-09-08] MEDS: INSULIN GLARGINE 100 UNITS/ML VIAL SQ SCH (20:47)
[2022-09-08] MEDS: HYDROCODONE/APAP 5MG-325MG TAB PO PRN (20:59)
[2022-09-08] MEDS: ATORVASTATIN 20 MG TAB PO SCH (21:00)
[2022-09-09] VITALS (8 sets, daily range): BP systolic 131–157; BP diastolic 54–65
[2022-09-09] MEDS: PANTOPRAZOLE SOD 40 MG TABEC PO SCH ×2 (08:52→16:57)
[2022-09-09] MEDS: METOPROLOL SUCCINATE 25 MG TAB XL PO SCH (08:52)
[2022-09-09] MEDS: INSULIN LISPRO 100 UNIT/1 ML 3ML VIAL SQ SCH ×4 (08:55→21:00)
[2022-09-09] MEDS: BALSAM PERU/CASTOR OIL 60 GM OINT...G. TP SCH (10:19)
[2022-09-09] MEDS: COLLAGENASE 5 GM TUBE TOP SCH (10:19)
[2022-09-09] MEDS: HYDROCODONE/APAP 5MG-325MG TAB PO PRN (12:06)
[2022-09-09] MEDS: INSULIN GLARGINE 100 UNITS/ML VIAL SQ SCH (21:00)
[2022-09-09] MEDS: ATORVASTATIN 20 MG TAB PO SCH (22:15)
[2022-09-10] VITALS (8 sets, daily range): BP systolic 129–159; BP diastolic 57–68
[2022-09-10 05:02] LABS: BASOPHILS # (AUTO) 0.1 (0.0-0.1); BASOPHILS % 0.5 % (0.0-1.0); EOSINOPHILS # (AUTO) 0.2 (0.0-0.4); EOSINOPHILS % 1.7 % (0.0-6.0); HEMATOCRIT 26.1 % (38.2-49.6); HEMOGLOBIN 7.7 g/dL (14.0-18.0); LYMPHOCYTES # (AUTO) 0.9 (1.0-3.2); LYMPHOCYTES % 9.2 % (18.0-39.1); MEAN CORPUSCULAR HGB CONC 29.5 g/dL (31-35); MEAN CORPUSCULAR VOLUME 88.2 fL (81-99); MONOCYTES # (AUTO) 0.9 (0.2-0.8); MONOCYTES % 9.6 % (4.4-11.3); NEUTROPHILS # (AUTO) 7.7 (2.1-6.9); NEUTROPHILS % 78.4 % (38.7-80.0); PLATELET COUNT 227 x10e3/uL (140-360); RED BLOOD COUNT 2.96 x10e6/uL (4.3-5.7)
[2022-09-10 05:24] LABS: ANION GAP 14.4 mmol/L (8-16); CALCIUM 8.8 mg/dL (8.4-10.2); CREATININE, SERUM 3.3 mg/dL (0.72-1.25); POTASSIUM 4.4 mmol/L (3.5-5.1)
[2022-09-10] MEDS: INSULIN LISPRO 100 UNIT/1 ML 3ML VIAL SQ SCH ×4 (07:30→20:55)
[2022-09-10] MEDS: PANTOPRAZOLE SOD 40 MG TABEC PO SCH ×2 (07:37→15:31)
[2022-09-10] MEDS: METOPROLOL SUCCINATE 25 MG TAB XL PO SCH (09:00)
[2022-09-10] MEDS: COLLAGENASE 5 GM TUBE TOP SCH (09:01)
[2022-09-10] MEDS ORDERED: SODIUM CHLORIDE 0.9% 250ML 250 ML IV ONE (12:45)
[2022-09-10] MEDS ORDERED: SODIUM CHLORIDE 0.9% 250ML 250 ML ONE (15:50)
[2022-09-10] MEDS ORDERED: HEPARIN SOD (PORCINE) 1000 UNIT/ML SDV IV PRN (17:30)
[2022-09-10] MEDS: INSULIN GLARGINE 100 UNITS/ML VIAL SQ SCH (20:55)
[2022-09-10] MEDS: ATORVASTATIN 20 MG TAB PO SCH (21:10)
[2022-09-11] VITALS (8 sets, daily range): BP systolic 128–161; BP diastolic 52–63
[2022-09-11] MEDS: INSULIN LISPRO 100 UNIT/1 ML 3ML VIAL SQ SCH ×4 (07:30→22:08)
[2022-09-11] MEDS: METOPROLOL SUCCINATE 25 MG TAB XL PO SCH (09:19)
[2022-09-11] MEDS: PANTOPRAZOLE SOD 40 MG TABEC PO SCH ×2 (09:19→16:30)
[2022-09-11] MEDS: COLLAGENASE 5 GM TUBE TOP SCH (16:30)
[2022-09-11] MEDS: ATORVASTATIN 20 MG TAB PO SCH (22:02)
[2022-09-11] MEDS: INSULIN GLARGINE 100 UNITS/ML VIAL SQ SCH (22:07)
[2022-09-12] VITALS (8 sets, daily range): BP systolic 130–159; BP diastolic 58–68
[2022-09-12] MEDS: INSULIN LISPRO 100 UNIT/1 ML 3ML VIAL SQ SCH ×4 (07:30→21:00)
[2022-09-12] MEDS: COLLAGENASE 5 GM TUBE TOP SCH (09:00)
[2022-09-12] MEDS: METOPROLOL SUCCINATE 25 MG TAB XL PO SCH (09:00)
[2022-09-12] MEDS: PANTOPRAZOLE SOD 40 MG TABEC PO SCH ×2 (09:00→17:40)
[2022-09-12 11:45] LABS: BASOPHILS % 0.5 % (0.0-1.0); EOSINOPHILS # (AUTO) 0.2 (0.0-0.4); EOSINOPHILS % 1.7 % (0.0-6.0); HEMATOCRIT 28.9 % (38.2-49.6); HEMOGLOBIN 8.8 g/dL (14.0-18.0); LYMPHOCYTES # (AUTO) 1.1 (1.0-3.2); LYMPHOCYTES % 12.4 % (18.0-39.1); MEAN CORPUSCULAR HEMOGLOBIN 26.4 pg (28-32); MEAN CORPUSCULAR HGB CONC 30.4 g/dL (31-35); MEAN CORPUSCULAR VOLUME 86.8 fL (81-99); MONOCYTES # (AUTO) 0.9 (0.2-0.8); MONOCYTES % 10.5 % (4.4-11.3); NEUTROPHILS # (AUTO) 6.5 (2.1-6.9); NEUTROPHILS % 74.1 % (38.7-80.0); PLATELET COUNT 219 x10e3/uL (140-360); RED BLOOD COUNT 3.33 x10e6/uL (4.3-5.7); RED CELL DISTRIBUTION WIDTH 15.7 % (11.7-14.4)
[2022-09-12 11:57] LABS: ANION GAP 14.2 mmol/L (8-16); CREATININE, SERUM 3.79 mg/dL (0.72-1.25); POTASSIUM 4.2 mmol/L (3.5-5.1)
[2022-09-12] MEDS: HYDROCODONE/APAP 5MG-325MG TAB PO PRN (12:57)
[2022-09-12] MEDS: INSULIN GLARGINE 100 UNITS/ML VIAL SQ SCH (21:00)
[2022-09-12] MEDS: ATORVASTATIN 20 MG TAB PO SCH (21:44)
[2022-09-13] VITALS (8 sets, daily range): BP systolic 122–155; BP diastolic 62–77
[2022-09-13] MEDS: INSULIN LISPRO 100 UNIT/1 ML 3ML VIAL SQ SCH ×4 (07:30→21:18)
[2022-09-13] MEDS: ASPIRIN 81 MG ENTERIC COATED PO SCH (08:18)
[2022-09-13] MEDS: METOPROLOL SUCCINATE 25 MG TAB XL PO SCH (08:18)
[2022-09-13] MEDS: PANTOPRAZOLE SOD 40 MG TABEC PO SCH ×2 (08:19→16:25)
[2022-09-13] MEDS ORDERED: DOCUSATE SODIUM 100 MG CAP PO PRN (11:15)
[2022-09-13] MEDS: COLLAGENASE 5 GM TUBE TOP SCH (12:15)
[2022-09-13] MEDS: HYDROCODONE/APAP 5MG-325MG TAB PO PRN (16:26)
[2022-09-13] MEDS: BISACODYL 5 MG TAB EC PO PRN (16:26)
[2022-09-13] MEDS: ATORVASTATIN 20 MG TAB PO SCH (21:17)
[2022-09-13] MEDS: INSULIN GLARGINE 100 UNITS/ML VIAL SQ SCH (21:19)
[2022-09-14] VITALS (7 sets, daily range): BP systolic 121–149; BP diastolic 61–73
[2022-09-14 06:40] LABS: BASOPHILS % 0.4 % (0.0-1.0); EOSINOPHILS # (AUTO) 0.3 (0.0-0.4); EOSINOPHILS % 4.6 % (0.0-6.0); HEMATOCRIT 26.6 % (38.2-49.6); LYMPHOCYTES # (AUTO) 0.9 (1.0-3.2); LYMPHOCYTES % 12.3 % (18.0-39.1); MEAN CORPUSCULAR HEMOGLOBIN 26.7 pg (28-32); MEAN CORPUSCULAR HGB CONC 30.1 g/dL (31-35); MEAN CORPUSCULAR VOLUME 88.7 fL (81-99); MONOCYTES % 13.2 % (4.4-11.3); NEUTROPHILS % 68.7 % (38.7-80.0); PLATELET COUNT 230 x10e3/uL (140-360); RED CELL DISTRIBUTION WIDTH 15.7 % (11.7-14.4)
[2022-09-14 06:57] LABS: CALCIUM 8.4 mg/dL (8.4-10.2); CREATININE, SERUM 3.33 mg/dL (0.72-1.25)
[2022-09-14] MEDS: INSULIN LISPRO 100 UNIT/1 ML 3ML VIAL SQ SCH ×4 (07:30→21:00)
[2022-09-14] MEDS ORDERED: SODIUM CHLORIDE 0.9% 1000ML 1,000 ML ONE ×2 (08:35→08:39)
[2022-09-14] MEDS: METOPROLOL SUCCINATE 25 MG TAB XL PO SCH (09:00)
[2022-09-14] MEDS: PANTOPRAZOLE SOD 40 MG TABEC PO SCH ×2 (09:22→16:32)
[2022-09-14] MEDS: ASPIRIN 81 MG ENTERIC COATED PO SCH (09:22)
[2022-09-14] MEDS: COLLAGENASE 5 GM TUBE TOP SCH (09:30)
[2022-09-14] MEDS: ACETAMINOPHEN 325 MG TAB PO PRN ×2 (10:34→23:11)
[2022-09-14] MEDS: HYDROCODONE/APAP 5MG-325MG TAB PO PRN (16:48)
[2022-09-14] MEDS: EPOETIN ALFA-EPBX 10,000 UNIT/ML VIAL SC SCH (17:52)
[2022-09-14] MEDS: INSULIN GLARGINE 100 UNITS/ML VIAL SQ SCH (21:00)
[2022-09-14] MEDS: ATORVASTATIN 20 MG TAB PO SCH (23:11)
[2022-09-15] VITALS (9 sets, daily range): BP systolic 115–155; BP diastolic 50–63
[2022-09-15] MEDS: PANTOPRAZOLE SOD 40 MG TABEC PO SCH ×2 (09:36→17:17)
[2022-09-15] MEDS: METOPROLOL SUCCINATE 25 MG TAB XL PO SCH (09:37)
[2022-09-15] MEDS: ASPIRIN 81 MG ENTERIC COATED PO SCH (09:37)
[2022-09-15] MEDS: COLLAGENASE 5 GM TUBE TOP SCH (09:37)
[2022-09-15] MEDS: INSULIN LISPRO 100 UNIT/1 ML 3ML VIAL SQ SCH ×4 (09:56→21:00)
[2022-09-15] MEDS: BISACODYL 5 MG TAB EC PO PRN (15:19)
[2022-09-15] MEDS: INSULIN GLARGINE 100 UNITS/ML VIAL SQ SCH (21:00)
[2022-09-15] MEDS: ATORVASTATIN 20 MG TAB PO SCH (21:56)
[2022-09-16] VITALS (8 sets, daily range): BP systolic 127–139; BP diastolic 50–62
[2022-09-16] MEDS: HYDROCODONE/APAP 5MG-325MG TAB PO PRN ×2 (04:48→16:37)
[2022-09-16] MEDS: INSULIN LISPRO 100 UNIT/1 ML 3ML VIAL SQ SCH ×4 (07:30→22:06)
[2022-09-16] MEDS: COLLAGENASE 5 GM TUBE TOP SCH (09:00)
[2022-09-16] MEDS: ASPIRIN 81 MG ENTERIC COATED PO SCH (16:39)
[2022-09-16] MEDS: PANTOPRAZOLE SOD 40 MG TABEC PO SCH ×2 (16:39→16:46)
[2022-09-16] MEDS: METOPROLOL SUCCINATE 25 MG TAB XL PO SCH (16:39)
[2022-09-16] MEDS: EPOETIN ALFA-EPBX 10,000 UNIT/ML VIAL SC SCH (16:39)
[2022-09-16] MEDS: ATORVASTATIN 20 MG TAB PO SCH (22:04)
[2022-09-16] MEDS: INSULIN GLARGINE 100 UNITS/ML VIAL SQ SCH (22:07)
[2022-09-17 05:20] VITALS: BP 127/57
[2022-09-17 06:09] LABS: BASOPHILS % 0.5 % (0.0-1.0); EOSINOPHILS # (AUTO) 0.2 (0.0-0.4); HEMATOCRIT 24.5 % (38.2-49.6); HEMOGLOBIN 7.3 g/dL (14.0-18.0); LYMPHOCYTES % 14.2 % (18.0-39.1); MEAN CORPUSCULAR HGB CONC 29.8 g/dL (31-35); MEAN CORPUSCULAR VOLUME 87.2 fL (81-99); MONOCYTES # (AUTO) 1.1 (0.2-0.8); NEUTROPHILS # (AUTO) 4.8 (2.1-6.9); NEUTROPHILS % 65.8 % (38.7-80.0); PLATELET COUNT 328 x10e3/uL (140-360); RED BLOOD COUNT 2.81 x10e6/uL (4.3-5.7); RED CELL DISTRIBUTION WIDTH 15.5 % (11.7-14.4)
[2022-09-17 06:39] LABS: ANION GAP 13.7 mmol/L (8-16); CALCIUM 8.5 mg/dL (8.4-10.2); CREATININE, SERUM 2.43 mg/dL (0.72-1.25); POTASSIUM 3.7 mmol/L (3.5-5.1)
[2022-09-17] MEDS: INSULIN LISPRO 100 UNIT/1 ML 3ML VIAL SQ SCH ×2 (07:30→12:14)
[2022-09-17 08:19] VITALS: BP 133/64
[2022-09-17] MEDS: ASPIRIN 81 MG ENTERIC COATED PO SCH (08:25)
[2022-09-17] MEDS: PANTOPRAZOLE SOD 40 MG TABEC PO SCH (08:25)
[2022-09-17] MEDS: METOPROLOL SUCCINATE 25 MG TAB XL PO SCH (08:26)
[2022-09-17] MEDS: COLLAGENASE 5 GM TUBE TOP SCH (08:26)
[2022-09-17 09:00] VITALS: BP 133/64
[2022-09-17] MEDS: HYDROCODONE/APAP 5MG-325MG TAB PO PRN (10:13)
[2022-09-17] MEDS ORDERED: TOPROL XL25 MG PO (12:21)
[2022-09-17] MEDS ORDERED: Insulin Glargine SQ (12:21)
== END 2022-09-17 14:09 | DRG 853 ==
LOC: ER 15:05 → ERHOLD 17:58 → MED/SURG3 19:50
PROVIDERS: ADMIT Internal Medicine; ATTEND Internal Medicine
PROC: 5A1D70Z Performance of Urinary Filtration, Intermittent, Less than 6 Hours Per Day (ICD-10-PCS; 2022-08-26)
PROC: B24BZZ4 Ultrasonography of Heart with Aorta, Transesophageal (ICD-10-PCS; 2022-08-26)
PROC: 0JH63XZ Insertion of Tunneled Vascular Access Device into Chest Subcutaneous Tissue and Fascia, Percutaneous Approach (ICD-10-PCS; 2022-08-28)
PROC: 02HV33Z Insertion of Infusion Device into Superior Vena Cava, Percutaneous Approach (ICD-10-PCS; 2022-08-28)
PROC: 3E04329 Introduction of Other Anti-infective into Central Vein, Percutaneous Approach (ICD-10-PCS; 2022-08-28)
PROC: 30243N1 Transfusion of Nonautologous Red Blood Cells into Central Vein, Percutaneous Approach (ICD-10-PCS; 2022-08-31)
PROC: 05BF0ZZ Excision of Left Cephalic Vein, Open Approach (ICD-10-PCS; 2022-09-03)
PROC: 05PYX3Z Removal of Infusion Device from Upper Vein, External Approach (ICD-10-PCS; 2022-09-03)
PROC: 031809D Bypass Left Brachial Artery to Upper Arm Vein with Autologous Venous Tissue, Open Approach (ICD-10-PCS; principal; 2022-09-03 09:12)
PROC: 02HV33Z Insertion of Infusion Device into Superior Vena Cava, Percutaneous Approach (ICD-10-PCS; 2022-09-04)
PROC: 0JH63XZ Insertion of Tunneled Vascular Access Device into Chest Subcutaneous Tissue and Fascia, Percutaneous Approach (ICD-10-PCS; 2022-09-07)
PROC: 02HV33Z Insertion of Infusion Device into Superior Vena Cava, Percutaneous Approach (ICD-10-PCS; 2022-09-07)
DX: A41.01 Sepsis due to Methicillin susceptible Staphylococcus aureus (principal); L89.153 Pressure ulcer of sacral region, stage 3; N18.6 End stage renal disease; N17.9 Acute kidney failure, unspecified; M62.82 Rhabdomyolysis; E87.20 Acidosis, unspecified; I12.0 Hypertensive chronic kidney disease with stage 5 chronic kidney disease or end stage renal disease; T82.7XXA Infection and inflammatory reaction due to other cardiac and vascular devices, implants and grafts, initial encounter; L25.1 Unspecified contact dermatitis due to drugs in contact with skin; E11.22 Type 2 diabetes mellitus with diabetic chronic kidney disease; Z99.2 Dependence on renal dialysis; Z79.4 Long term (current) use of insulin; D50.9 Iron deficiency anemia, unspecified; L89.616 Pressure-induced deep tissue damage of right heel; L89.620 Pressure ulcer of left heel, unstageable; H54.8 Legal blindness, as defined in USA; Z20.822 Contact with and (suspected) exposure to COVID-19; E78.5 Hyperlipidemia, unspecified; Z74.2 Need for assistance at home and no other household member able to render care; D63.8 Anemia in other chronic diseases classified elsewhere; R60.0 Localized edema; S72.144D Nondisplaced intertrochanteric fracture of right femur, subsequent encounter for closed fracture with routine healing; I25.10 Atherosclerotic heart disease of native coronary artery without angina pectoris; E78.00 Pure hypercholesterolemia, unspecified
CPT/HCPCS: 0223U; 36415; 36556; 36558; 36589; 71045; 71046; 72192; 74470; 76937; 77001; 80048; 80053; 81001; 82550; 82553; 82948; 83540; 83880; 84100; 84466; 84484; 85025; 85610; 86704; 86706; 86850; 86900; 86920; 87040; 87071; 87186; 87205; 87340; 90962; 93005; 93306; 93312; 93355; 93971; 94799; 96360; 96372; 99152; 99153; 99252; 99284; C1752; C1769; C1892; J0295; J0690; J1644; J1756; J2001; J2150; J2250; J2405; J2543; J3010; J3370; J7030; J7040; J7050; P9016

== ENCOUNTER 2022-10-11 10:41 | Inpatient (IN) | payer MEDICARE ==
[~2022-10-11] VITALS: Ht 182.9 cm; Wt 89.4 kg
[~2022-10-11 10:41] MED LIST changes: +ELIQUIS5 MG PO; -FENTANYL CITRATE/PF 100MCG/2 ML INJ ONE; +IRON325 M1 PEG; +Insulin Glargine SQ; -LIDOCAINE HCL 2% LOCAL INJ 5 ML SDV VIAL INJ ONE; -MIDAZOLAM HCL 2 MG/2 ML VIAL ONE; -ONDANSETRON HCL INJ 2MG/ML 2ML 2 MG/ML VIAL ONE; -POVIDONE IODINE 0.05% 0.05 % ML PO ONE; -PROPOFOL IV EMULSION 10 MG/ML 20 ML VIAL ONE; -SEVOFLURANE INHAL SOLN 250 ML PEN BTL ONE; +TOPROL XL25 MG PO
[2022-10-11] MEDS ORDERED: Vancomycin IV 1 GM in SODIUM CHLORIDE 0.9% 250ML 250 ML IV SCH ×2 (11:00→19:30)
[2022-10-11] MEDS: SODIUM CHLORIDE 0.9% 500ML 500 ML IV ONE (11:06)
[2022-10-11 11:08] LABS: BASOPHILS % 0.3 % (0.0-1.0); EOSINOPHILS % 0.2 % (0.0-6.0); HEMATOCRIT 25.2 % (38.2-49.6); HEMOGLOBIN 7.5 g/dL (14.0-18.0); LYMPHOCYTES # (AUTO) 0.9 (1.0-3.2); MEAN CORPUSCULAR HGB CONC 29.8 g/dL (31-35); MEAN CORPUSCULAR VOLUME 87.2 fL (81-99); MONOCYTES # (AUTO) 1.5 (0.2-0.8); NEUTROPHILS # (AUTO) 12.1 (2.1-6.9); NEUTROPHILS % 82.8 % (38.7-80.0); PLATELET COUNT 466 x10e3/uL (140-360); RED BLOOD COUNT 2.89 x10e6/uL (4.3-5.7); RED CELL DISTRIBUTION WIDTH 19.9 % (11.7-14.4)
[2022-10-11] MEDS ORDERED: SODIUM CHLORIDE 0.9% 500ML 500 ML ONE ×2 (11:11→17:30)
[2022-10-11] MEDS ORDERED: PIPERACILLIN/TAZOBACTAM SOD 2.25 GM VIAL ONE (11:11)
[2022-10-11 11:18] LABS: INR 1.44; PROTHROMBIN TIME 18.1 seconds (11.9-14.5)
[2022-10-11 11:19] LABS: PARTIAL THROMBOPLASTIN TIME 49.3 seconds (23.8-35.5)
[2022-10-11 11:28] LABS: ALBUMIN 1.9 g/dL (3.5-5.0); ALBUMIN/GLOBULIN RATIO 0.4 (0.8-2.0); ANION GAP 23.2 mmol/L (8-16); CREATININE, SERUM 2.46 mg/dL (0.72-1.25); POTASSIUM 3.2 mmol/L (3.5-5.1)
[2022-10-11] MEDS ORDERED: MAGNESIUM SULFATE 2GM/50ML 50 ML IV ONE (11:30)
[2022-10-11] MEDS ORDERED: SODIUM CHLORIDE FLUSH 10 ML SYR INJ PRN (15:45)
[2022-10-11] MEDS ORDERED: ONDANSETRON HCL INJ 2MG/ML 2ML 2 MG/ML VIAL IV PRN (15:45)
[2022-10-11] MEDS ORDERED: SODIUM CHLORIDE 0.9% 500ML 500 ML IV ONE (17:15)
[2022-10-11] MEDS ORDERED: CLONIDINE HCL 0.1 MG TAB PO PRN (17:15)
[2022-10-11 20:20] LABS: % IRON SATURATION 18 % (15-50); IRON 21 ug/dL (65-175); TOTAL IRON BINDING CAPACITY 116 ug/dL (261-478); TRANSFERRIN 83 mg/dL (174-364)
[2022-10-11] MEDS: LATANOPROST(OPTH) 2.5 ML BTL OP SCH (21:00)
[2022-10-11] MEDS ORDERED: LISINOPRIL2.5 MG PO (22:17)
[2022-10-11] MEDS ORDERED: DOXYCYCLINE HY100 MG PO (22:21)
[2022-10-11] MEDS ORDERED: BISACODYL5 MG PO (22:21)
[2022-10-11] MEDS ORDERED: ELIQUIS5 MG PO (22:21)
[2022-10-11] MEDS ORDERED: ASPIRIN81 MG PO (22:21)
[2022-10-11] MEDS ORDERED: DORZOLAMIDE HCL10 ML OP (22:21)
[2022-10-11 22:25] VITALS: BP 107/52
[2022-10-11] MEDS ORDERED: SODIUM CHLORIDE 0.9% 250ML 250 ML ONE (22:54)
[2022-10-11] MEDS: MELATONIN 3 MG TAB PO SCH (22:58)
[2022-10-11] MEDS: ATORVASTATIN 20 MG TAB PO SCH (22:59)
[2022-10-11] MEDS: INSULIN GLARGINE 100 UNITS/ML VIAL SQ SCH (23:18)
[2022-10-11 23:44] VITALS: BP 107/52
[2022-10-11 23:45] VITALS: BP 107/52
[2022-10-11 23:47] VITALS: BP 107/52
[2022-10-12] VITALS (8 sets, daily range): BP systolic 90–123; BP diastolic 39–71
[2022-10-12] MEDS: ACETAMINOPHEN 325 MG TAB PO PRN ×2 (03:50→17:17)
[2022-10-12 05:33] LABS: BASOPHILS % 0.3 % (0.0-1.0); EOSINOPHILS # (AUTO) 0.1 (0.0-0.4); EOSINOPHILS % 0.7 % (0.0-6.0); HEMATOCRIT 22.9 % (38.2-49.6); LYMPHOCYTES # (AUTO) 0.4 (1.0-3.2); LYMPHOCYTES % 3.2 % (18.0-39.1); MEAN CORPUSCULAR HEMOGLOBIN 25.7 pg (28-32); MEAN CORPUSCULAR HGB CONC 30.1 g/dL (31-35); MEAN CORPUSCULAR VOLUME 85.1 fL (81-99); NEUTROPHILS # (AUTO) 12.1 (2.1-6.9); NEUTROPHILS % 88.1 % (38.7-80.0); PLATELET COUNT 472 x10e3/uL (140-360); RED BLOOD COUNT 2.69 x10e6/uL (4.3-5.7); RED CELL DISTRIBUTION WIDTH 19.9 % (11.7-14.4)
[2022-10-12 05:37] LABS: HEMOGLOBIN 6.9 g/dL (14.0-18.0)
[2022-10-12 05:52] LABS: ALBUMIN/GLOBULIN RATIO 0.5 (0.8-2.0); CALCIUM 8.7 mg/dL (8.4-10.2); CREATININE, SERUM 3.01 mg/dL (0.72-1.25)
[2022-10-12] MEDS: PANTOPRAZOLE SOD 40 MG TABEC PO SCH ×2 (08:21→17:17)
[2022-10-12] MEDS: INSULIN LISPRO 100 UNIT/1 ML 3ML VIAL SQ SCH ×3 (08:23→17:35)
[2022-10-12] MEDS: DORZOLAMIDE/TIMOLOL (OPTH SOL) 10 ML DRPETTE OP SCH ×2 (09:00→17:00)
[2022-10-12 09:45] LABS: EOSINOPHILS % (MANUAL) 1 % (0-7); HYPOCHROMASIA SLIGHT; LYMPHOCYTES % (MANUAL) 3 % (19-48); MONOCYTES % (MANUAL) 3 % (3.4-9.0); NEUTROPHILS % (MANUAL) 93 % (40-74); PLATELET ESTIMATE ADEQUATE; PLATELET MORPHOLOGY COMMENT NORMAL; RBC MORPHOLOGY COMMENT NORMAL
[2022-10-12] MEDS ORDERED: SODIUM CHLORIDE 0.9% 1000ML 2,000 ML ONE (11:58)
[2022-10-12] MEDS ORDERED: HEPARIN SOD (PORCINE) 1000 UNIT/ML SDV ONE (11:59)
[2022-10-12] MEDS: MIDODRINE 2.5 MG TAB PO SCH ×2 (12:00→17:17)
[2022-10-12] MEDS ORDERED: HEPARIN SOD (PORCINE) 1000 UNIT/ML SDV IV PRN (12:00)
[2022-10-12] MEDS ORDERED: SODIUM CHLORIDE 0.9% 1000ML 2,000 ML IV PRN (12:00)
[2022-10-12] MEDS ORDERED: SODIUM CHLORIDE 0.9% 250ML 250 ML ONE (13:35)
[2022-10-12] MEDS: COLLAGENASE 5 GM TUBE TP SCH (14:00)
[2022-10-12] MEDS ORDERED: SODIUM CHLORIDE 0.9% 250ML 250 ML IV ONE (14:45)
[2022-10-12] MEDS: ATORVASTATIN 20 MG TAB PO SCH (20:13)
[2022-10-12] MEDS: MELATONIN 3 MG TAB PO SCH (20:13)
[2022-10-12] MEDS: INSULIN GLARGINE 100 UNITS/ML VIAL SQ SCH (20:58)
[2022-10-12] MEDS: LATANOPROST(OPTH) 2.5 ML BTL OP SCH (20:59)
[2022-10-13] VITALS (9 sets, daily range): BP systolic 104–143; BP diastolic 51–72
[2022-10-13 05:17] LABS: BASOPHILS # (AUTO) 0.1 (0.0-0.1); BASOPHILS % 0.4 % (0.0-1.0); EOSINOPHILS # (AUTO) 0.1 (0.0-0.4); EOSINOPHILS % 0.9 % (0.0-6.0); HEMATOCRIT 31.8 % (38.2-49.6); HEMOGLOBIN 10.2 g/dL (14.0-18.0); LYMPHOCYTES # (AUTO) 0.6 (1.0-3.2); LYMPHOCYTES % 3.7 % (18.0-39.1); MEAN CORPUSCULAR HEMOGLOBIN 27.6 pg (28-32); MEAN CORPUSCULAR HGB CONC 32.1 g/dL (31-35); MEAN CORPUSCULAR VOLUME 85.9 fL (81-99); MONOCYTES % 6.3 % (4.4-11.3); NEUTROPHILS # (AUTO) 13.7 (2.1-6.9); NEUTROPHILS % 87.8 % (38.7-80.0); PLATELET COUNT 479 x10e3/uL (140-360); RED CELL DISTRIBUTION WIDTH 19.3 % (11.7-14.4)
[2022-10-13 05:40] LABS: ALBUMIN 1.9 g/dL (3.5-5.0); ALBUMIN/GLOBULIN RATIO 0.4 (0.8-2.0); CALCIUM 8.8 mg/dL (8.4-10.2); CREATININE, SERUM 1.99 mg/dL (0.72-1.25)
[2022-10-13] MEDS: DORZOLAMIDE/TIMOLOL (OPTH SOL) 10 ML DRPETTE OP SCH ×2 (08:25→17:52)
[2022-10-13] MEDS: MIDODRINE 2.5 MG TAB PO SCH ×3 (08:28→17:52)
[2022-10-13] MEDS: PANTOPRAZOLE SOD 40 MG TABEC PO SCH ×2 (08:28→17:52)
[2022-10-13] MEDS: ACETAMINOPHEN 325 MG TAB PO PRN ×2 (08:36→20:09)
[2022-10-13] MEDS ORDERED: POTASSIUM CHLORIDE 10MEQ EA PO ONE (09:30)
[2022-10-13] MEDS: INSULIN LISPRO 100 UNIT/1 ML 3ML VIAL SQ SCH ×3 (10:18→18:19)
[2022-10-13] MEDS ORDERED: IOPAMIDOL 370 MG/ML 100 ML INFUS..BTL INJ ONE (18:35)
[2022-10-13] MEDS: MELATONIN 3 MG TAB PO SCH (20:09)
[2022-10-13] MEDS: ATORVASTATIN 20 MG TAB PO SCH (20:09)
[2022-10-13] MEDS: LATANOPROST(OPTH) 2.5 ML BTL OP SCH (21:00)
[2022-10-13] MEDS: INSULIN GLARGINE 100 UNITS/ML VIAL SQ SCH (21:00)
[2022-10-13] MEDS: IPRATROPIUM BROMIDE 0.02% 2.5 ML NEB NEB SCH (22:50)
[2022-10-14] VITALS (9 sets, daily range): BP systolic 109–127; BP diastolic 51–82
[2022-10-14] MEDS: IPRATROPIUM BROMIDE 0.02% 2.5 ML NEB NEB SCH ×6 (01:00→21:15)
[2022-10-14 04:57] LABS: BASOPHILS # (AUTO) 0.1 (0.0-0.1); BASOPHILS % 0.4 % (0.0-1.0); EOSINOPHILS % 0.1 % (0.0-6.0); HEMATOCRIT 32.7 % (38.2-49.6); HEMOGLOBIN 10.2 g/dL (14.0-18.0); LYMPHOCYTES # (AUTO) 0.4 (1.0-3.2); LYMPHOCYTES % 1.5 % (18.0-39.1); MEAN CORPUSCULAR HEMOGLOBIN 27.3 pg (28-32); MEAN CORPUSCULAR HGB CONC 31.2 g/dL (31-35); MEAN CORPUSCULAR VOLUME 87.4 fL (81-99); MONOCYTES # (AUTO) 1.6 (0.2-0.8); MONOCYTES % 5.7 % (4.4-11.3); NEUTROPHILS # (AUTO) 25.8 (2.1-6.9); NEUTROPHILS % 90.5 % (38.7-80.0); PLATELET COUNT 552 x10e3/uL (140-360); RED BLOOD COUNT 3.74 x10e6/uL (4.3-5.7); RED CELL DISTRIBUTION WIDTH 19.7 % (11.7-14.4)
[2022-10-14] MEDS: INSULIN LISPRO 100 UNIT/1 ML 3ML VIAL SQ SCH ×3 (07:49→17:00)
[2022-10-14] MEDS: MIDODRINE 2.5 MG TAB PO SCH ×3 (08:00→16:53)
[2022-10-14] MEDS: ACETAMINOPHEN 325 MG TAB PO PRN (08:06)
[2022-10-14] MEDS ORDERED: HEPARIN SOD (PORCINE) 1000 UNIT/ML SDV IV PRN ×2 (08:45)
[2022-10-14] MEDS: PANTOPRAZOLE SOD 40 MG TABEC PO SCH ×2 (09:00→16:53)
[2022-10-14 09:19] LABS: ANION GAP 18.7 mmol/L (8-16); CALCIUM 8.6 mg/dL (8.4-10.2)
[2022-10-14 09:24] LABS: POTASSIUM 3.7 mmol/L (3.5-5.1)
[2022-10-14] MEDS: DORZOLAMIDE/TIMOLOL (OPTH SOL) 10 ML DRPETTE OP SCH ×2 (11:09→16:54)
[2022-10-14] MEDS ORDERED: LIDOCAINE HCL 1% LOCAL INJ 20 ML VIAL ONE (13:58)
[2022-10-14] MEDS ORDERED: LACTULOSE SYRUP 20 GM/30 ML UDC PO ONE (16:00)
[2022-10-14] MEDS ORDERED: Vancomycin IV 1 GM in SODIUM CHLORIDE 0.9% 250ML 250 ML IV ONE (16:30)
[2022-10-14] MEDS: COLLAGENASE 5 GM TUBE TP SCH (16:54)
[2022-10-14] MEDS ORDERED: SODIUM CHLORIDE 0.9% 250ML 250 ML ONE (17:22)
[2022-10-14] MEDS: LATANOPROST(OPTH) 2.5 ML BTL OP SCH (21:00)
[2022-10-14] MEDS: MELATONIN 3 MG TAB PO SCH (21:11)
[2022-10-14] MEDS: ATORVASTATIN 20 MG TAB PO SCH (21:12)
[2022-10-14] MEDS: INSULIN GLARGINE 100 UNITS/ML VIAL SQ SCH (21:31)
[2022-10-14] MEDS ORDERED: CEFAZOLIN SODIUM 2 GM in SODIUM CHLORIDE 0.9% 100 ML IV SCH (22:00)
[2022-10-15 03:00] VITALS: BP 130/70
[2022-10-15] MEDS: IPRATROPIUM BROMIDE 0.02% 2.5 ML NEB NEB SCH ×6 (03:00→23:50)
[2022-10-15 04:59] LABS: BASOPHILS # (AUTO) 0.1 (0.0-0.1); BASOPHILS % 0.3 % (0.0-1.0); EOSINOPHILS # (AUTO) 0.1 (0.0-0.4); EOSINOPHILS % 0.7 % (0.0-6.0); HEMATOCRIT 30.3 % (38.2-49.6); HEMOGLOBIN 9.4 g/dL (14.0-18.0); LYMPHOCYTES # (AUTO) 0.7 (1.0-3.2); LYMPHOCYTES % 3.8 % (18.0-39.1); MEAN CORPUSCULAR HEMOGLOBIN 26.9 pg (28-32); MEAN CORPUSCULAR VOLUME 86.8 fL (81-99); MONOCYTES # (AUTO) 1.4 (0.2-0.8); MONOCYTES % 7.8 % (4.4-11.3); NEUTROPHILS # (AUTO) 15.2 (2.1-6.9); NEUTROPHILS % 86.3 % (38.7-80.0); PLATELET COUNT 491 x10e3/uL (140-360); RED BLOOD COUNT 3.49 x10e6/uL (4.3-5.7); RED CELL DISTRIBUTION WIDTH 20.2 % (11.7-14.4)
[2022-10-15 05:19] LABS: ANION GAP 16.3 mmol/L (8-16); CALCIUM 8.4 mg/dL (8.4-10.2); CREATININE, SERUM 2.47 mg/dL (0.72-1.25); POTASSIUM 3.3 mmol/L (3.5-5.1)
[2022-10-15] MEDS: INSULIN LISPRO 100 UNIT/1 ML 3ML VIAL SQ SCH ×3 (08:00→17:00)
[2022-10-15] MEDS: MIDODRINE 2.5 MG TAB PO SCH ×3 (08:00→16:00)
[2022-10-15] MEDS: COLLAGENASE 5 GM TUBE TP SCH (09:00)
[2022-10-15] MEDS: PANTOPRAZOLE SOD 40 MG TABEC PO SCH ×2 (10:24→17:00)
[2022-10-15] MEDS: DORZOLAMIDE/TIMOLOL (OPTH SOL) 10 ML DRPETTE OP SCH ×2 (10:24→17:00)
[2022-10-15 12:00] VITALS: BP 119/67
[2022-10-15 16:55] VITALS: BP 127/67
[2022-10-15 16:57] VITALS: BP 127/67
[2022-10-15 19:46] VITALS: BP 136/68
[2022-10-15] MEDS: LATANOPROST(OPTH) 2.5 ML BTL OP SCH (21:00)
[2022-10-15] MEDS: INSULIN GLARGINE 100 UNITS/ML VIAL SQ SCH (21:00)
[2022-10-15 22:00] VITALS: BP 136/68
[2022-10-15] MEDS: MELATONIN 3 MG TAB PO SCH (22:00)
[2022-10-15] MEDS: ATORVASTATIN 20 MG TAB PO SCH (22:00)
[2022-10-16] VITALS (8 sets, daily range): BP systolic 125–162; BP diastolic 61–74
[2022-10-16] MEDS: IPRATROPIUM BROMIDE 0.02% 2.5 ML NEB NEB SCH ×6 (03:40→23:00)
[2022-10-16] MEDS ORDERED: LIDOCAINE HCL 1% LOCAL INJ 20 ML VIAL ONE (07:46)
[2022-10-16] MEDS ORDERED: SODIUM CHLORIDE 0.9% 250ML 250 ML ONE (07:47)
[2022-10-16] MEDS: INSULIN LISPRO 100 UNIT/1 ML 3ML VIAL SQ SCH ×3 (08:00→17:00)
[2022-10-16] MEDS ORDERED: ONDANSETRON HCL 4 MG ORAL DISINTEGRATING TAB PO PRN (08:30)
[2022-10-16] MEDS: DORZOLAMIDE/TIMOLOL (OPTH SOL) 10 ML DRPETTE OP SCH ×2 (09:00→17:14)
[2022-10-16] MEDS: COLLAGENASE 5 GM TUBE TP SCH (09:49)
[2022-10-16] MEDS: PANTOPRAZOLE SOD 40 MG TABEC PO SCH ×2 (09:49→17:14)
[2022-10-16] MEDS: MIDODRINE 2.5 MG TAB PO SCH ×3 (09:49→16:00)
[2022-10-16] MEDS ORDERED: POTASSIUM BICARBONATE/CIT AC 20 MEQ TABLET.EFF PO ONE (12:00)
[2022-10-16] MEDS ORDERED: HEPARIN SOD (PORCINE) 1000 UNIT/ML SDV ONE (12:08)
[2022-10-16] MEDS: LATANOPROST(OPTH) 2.5 ML BTL OP SCH (21:00)
[2022-10-16] MEDS: ATORVASTATIN 20 MG TAB PO SCH (23:14)
[2022-10-16] MEDS: MELATONIN 3 MG TAB PO SCH (23:15)
[2022-10-16] MEDS: INSULIN GLARGINE 100 UNITS/ML VIAL SQ SCH (23:23)
[2022-10-16] MEDS: HEPARIN SOD (PORCINE) 5,000 UNIT/ML VIAL SC SCH (23:29)
[2022-10-17] VITALS (9 sets, daily range): BP systolic 109–147; BP diastolic 48–72
[2022-10-17] MEDS: IPRATROPIUM BROMIDE 0.02% 2.5 ML NEB NEB SCH ×6 (03:30→23:20)
[2022-10-17] MEDS: LATANOPROST(OPTH) 2.5 ML BTL OP SCH ×2 (05:42→21:00)
[2022-10-17 07:35] LABS: BASOPHILS # (AUTO) 0.1 (0.0-0.1); BASOPHILS % 0.5 % (0.0-1.0); EOSINOPHILS # (AUTO) 0.1 (0.0-0.4); EOSINOPHILS % 0.9 % (0.0-6.0); HEMATOCRIT 34.1 % (38.2-49.6); HEMOGLOBIN 10.2 g/dL (14.0-18.0); LYMPHOCYTES # (AUTO) 1.1 (1.0-3.2); LYMPHOCYTES % 8.3 % (18.0-39.1); MEAN CORPUSCULAR HEMOGLOBIN 26.6 pg (28-32); MEAN CORPUSCULAR HGB CONC 29.9 g/dL (31-35); MONOCYTES # (AUTO) 1.3 (0.2-0.8); MONOCYTES % 9.9 % (4.4-11.3); NEUTROPHILS # (AUTO) 10.1 (2.1-6.9); NEUTROPHILS % 77.1 % (38.7-80.0); PLATELET COUNT 459 x10e3/uL (140-360); RED BLOOD COUNT 3.83 x10e6/uL (4.3-5.7)
[2022-10-17 08:13] LABS: ALBUMIN 1.9 g/dL (3.5-5.0); ALBUMIN/GLOBULIN RATIO 0.5 (0.8-2.0); ANION GAP 12.5 mmol/L (8-16); CALCIUM 8.7 mg/dL (8.4-10.2); POTASSIUM 3.5 mmol/L (3.5-5.1)
[2022-10-17] MEDS: DORZOLAMIDE/TIMOLOL (OPTH SOL) 10 ML DRPETTE OP SCH ×2 (08:57→16:42)
[2022-10-17] MEDS: PANTOPRAZOLE SOD 40 MG TABEC PO SCH ×2 (08:58→16:40)
[2022-10-17] MEDS: COLLAGENASE 5 GM TUBE TP SCH (08:58)
[2022-10-17] MEDS: MIDODRINE 2.5 MG TAB PO SCH ×3 (08:58→16:00)
[2022-10-17] MEDS: INSULIN LISPRO 100 UNIT/1 ML 3ML VIAL SQ SCH ×4 (09:15→22:39)
[2022-10-17] MEDS: HEPARIN SOD (PORCINE) 5,000 UNIT/ML VIAL SC SCH ×2 (09:15→21:58)
[2022-10-17] MEDS: ACETAMINOPHEN 325 MG TAB PO PRN (10:44)
[2022-10-17] MEDS: TRIAMCINOLONE ACET 0.1% CREAM 15 GM TUBE TOP SCH ×2 (12:50→22:39)
[2022-10-17] MEDS: ATORVASTATIN 20 MG TAB PO SCH (21:53)
[2022-10-17] MEDS: MELATONIN 3 MG TAB PO SCH (21:54)
[2022-10-17] MEDS: INSULIN GLARGINE 100 UNITS/ML VIAL SQ SCH (22:01)
[2022-10-18] VITALS (7 sets, daily range): BP systolic 115–154; BP diastolic 52–67
[2022-10-18] MEDS: IPRATROPIUM BROMIDE 0.02% 2.5 ML NEB NEB SCH ×7 (00:50→23:00)
[2022-10-18] MEDS: MIDODRINE 2.5 MG TAB PO SCH (08:00)
[2022-10-18] MEDS: PANTOPRAZOLE SOD 40 MG TABEC PO SCH ×2 (08:48→16:49)
[2022-10-18] MEDS: DORZOLAMIDE/TIMOLOL (OPTH SOL) 10 ML DRPETTE OP SCH ×2 (08:48→16:49)
[2022-10-18] MEDS: TRIAMCINOLONE ACET 0.1% CREAM 15 GM TUBE TOP SCH ×2 (08:49→20:56)
[2022-10-18] MEDS: COLLAGENASE 5 GM TUBE TP SCH (08:49)
[2022-10-18] MEDS: HEPARIN SOD (PORCINE) 5,000 UNIT/ML VIAL SC SCH ×2 (08:52→20:55)
[2022-10-18] MEDS ORDERED: MIDODRINE HCL 5 MG TABLET PO PRN (11:45)
[2022-10-18] MEDS: INSULIN LISPRO 100 UNIT/1 ML 3ML VIAL SQ SCH ×2 (12:05→16:52)
[2022-10-18] MEDS: INSULIN GLARGINE 100 UNITS/ML VIAL SQ SCH (20:51)
[2022-10-18] MEDS: ATORVASTATIN 20 MG TAB PO SCH (20:55)
[2022-10-18] MEDS: LATANOPROST(OPTH) 2.5 ML BTL OP SCH (20:55)
[2022-10-18] MEDS: MELATONIN 3 MG TAB PO SCH (20:55)
[2022-10-19] VITALS (8 sets, daily range): BP systolic 125–153; BP diastolic 60–71
[2022-10-19] MEDS: IPRATROPIUM BROMIDE 0.02% 2.5 ML NEB NEB SCH ×6 (04:25→23:25)
[2022-10-19 06:09] LABS: BASOPHILS # (AUTO) 0.1 (0.0-0.1); BASOPHILS % 0.4 % (0.0-1.0); EOSINOPHILS # (AUTO) 0.2 (0.0-0.4); EOSINOPHILS % 1.3 % (0.0-6.0); HEMATOCRIT 34.1 % (38.2-49.6); HEMOGLOBIN 10.3 g/dL (14.0-18.0); LYMPHOCYTES # (AUTO) 1.4 (1.0-3.2); LYMPHOCYTES % 11.1 % (18.0-39.1); MEAN CORPUSCULAR HEMOGLOBIN 26.9 pg (28-32); MEAN CORPUSCULAR HGB CONC 30.2 g/dL (31-35); MONOCYTES # (AUTO) 1.4 (0.2-0.8); NEUTROPHILS # (AUTO) 8.7 (2.1-6.9); NEUTROPHILS % 71.1 % (38.7-80.0); PLATELET COUNT 395 x10e3/uL (140-360); RED BLOOD COUNT 3.83 x10e6/uL (4.3-5.7); RED CELL DISTRIBUTION WIDTH 20.8 % (11.7-14.4)
[2022-10-19 06:32] LABS: ANION GAP 14.2 mmol/L (8-16); CALCIUM 8.6 mg/dL (8.4-10.2); CREATININE, SERUM 1.81 mg/dL (0.72-1.25); POTASSIUM 3.2 mmol/L (3.5-5.1)
[2022-10-19] MEDS: INSULIN LISPRO 100 UNIT/1 ML 3ML VIAL SQ SCH ×3 (08:00→17:00)
[2022-10-19] MEDS: DORZOLAMIDE/TIMOLOL (OPTH SOL) 10 ML DRPETTE OP SCH ×2 (10:03→17:25)
[2022-10-19] MEDS: COLLAGENASE 5 GM TUBE TP SCH (10:03)
[2022-10-19] MEDS: TRIAMCINOLONE ACET 0.1% CREAM 15 GM TUBE TOP SCH ×2 (10:03→21:26)
[2022-10-19] MEDS: HEPARIN SOD (PORCINE) 5,000 UNIT/ML VIAL SC SCH ×2 (10:03→21:25)
[2022-10-19] MEDS: PANTOPRAZOLE SOD 40 MG TABEC PO SCH ×2 (10:03→17:25)
[2022-10-19] MEDS: ACETAMINOPHEN 325 MG TAB PO PRN (13:53)
[2022-10-19] MEDS: MELATONIN 3 MG TAB PO SCH (21:17)
[2022-10-19] MEDS: ATORVASTATIN 20 MG TAB PO SCH (21:17)
[2022-10-19] MEDS: LATANOPROST(OPTH) 2.5 ML BTL OP SCH (21:18)
[2022-10-19] MEDS: INSULIN GLARGINE 100 UNITS/ML VIAL SQ SCH (21:26)
[2022-10-20] VITALS (9 sets, daily range): BP systolic 128–142; BP diastolic 55–67
[2022-10-20] MEDS: IPRATROPIUM BROMIDE 0.02% 2.5 ML NEB NEB SCH ×6 (03:00→23:38)
[2022-10-20 05:56] LABS: BASOPHILS % 0.3 % (0.0-1.0); EOSINOPHILS # (AUTO) 0.2 (0.0-0.4); EOSINOPHILS % 1.8 % (0.0-6.0); HEMATOCRIT 33.1 % (38.2-49.6); HEMOGLOBIN 10.1 g/dL (14.0-18.0); LYMPHOCYTES # (AUTO) 1.3 (1.0-3.2); LYMPHOCYTES % 9.7 % (18.0-39.1); MEAN CORPUSCULAR HEMOGLOBIN 26.5 pg (28-32); MEAN CORPUSCULAR HGB CONC 30.5 g/dL (31-35); MEAN CORPUSCULAR VOLUME 86.9 fL (81-99); MONOCYTES # (AUTO) 1.5 (0.2-0.8); MONOCYTES % 11.3 % (4.4-11.3); NEUTROPHILS # (AUTO) 9.6 (2.1-6.9); NEUTROPHILS % 72.8 % (38.7-80.0); PLATELET COUNT 338 x10e3/uL (140-360); RED BLOOD COUNT 3.81 x10e6/uL (4.3-5.7); RED CELL DISTRIBUTION WIDTH 20.8 % (11.7-14.4)
[2022-10-20 06:21] LABS: ANION GAP 12.4 mmol/L (8-16); CALCIUM 8.7 mg/dL (8.4-10.2); CREATININE, SERUM 1.23 mg/dL (0.72-1.25); POTASSIUM 3.4 mmol/L (3.5-5.1)
[2022-10-20] MEDS: PANTOPRAZOLE SOD 40 MG TABEC PO SCH ×2 (08:11→18:06)
[2022-10-20] MEDS: INSULIN LISPRO 100 UNIT/1 ML 3ML VIAL SQ SCH ×3 (08:14→18:07)
[2022-10-20] MEDS: HEPARIN SOD (PORCINE) 5,000 UNIT/ML VIAL SC SCH ×2 (08:14→21:52)
[2022-10-20] MEDS: DORZOLAMIDE/TIMOLOL (OPTH SOL) 10 ML DRPETTE OP SCH ×2 (08:16→18:07)
[2022-10-20] MEDS: COLLAGENASE 5 GM TUBE TP SCH (13:08)
[2022-10-20] MEDS: TRIAMCINOLONE ACET 0.1% CREAM 15 GM TUBE TOP SCH ×2 (13:08→21:56)
[2022-10-20] MEDS: LATANOPROST(OPTH) 2.5 ML BTL OP SCH (21:43)
[2022-10-20] MEDS: MELATONIN 3 MG TAB PO SCH (21:43)
[2022-10-20] MEDS: ATORVASTATIN 20 MG TAB PO SCH (21:43)
[2022-10-20] MEDS: INSULIN GLARGINE 100 UNITS/ML VIAL SQ SCH (21:53)
[2022-10-21] VITALS: BP 122/59
[2022-10-21] MEDS: IPRATROPIUM BROMIDE 0.02% 2.5 ML NEB NEB SCH ×4 (03:00→14:50)
[2022-10-21 04:00] VITALS: BP 145/61
[2022-10-21] MEDS: ACETAMINOPHEN 325 MG TAB PO PRN (04:48)
[2022-10-21 06:32] LABS: ALBUMIN 1.9 g/dL (3.5-5.0); ANION GAP 13.6 mmol/L (8-16); CALCIUM 8.6 mg/dL (8.4-10.2); CREATININE, SERUM 1.3 mg/dL (0.72-1.25); POTASSIUM 3.6 mmol/L (3.5-5.1)
[2022-10-21 06:33] LABS: ALBUMIN/GLOBULIN RATIO 0.5 (0.8-2.0)
[2022-10-21 08:00] VITALS: BP 133/60
[2022-10-21 08:03] VITALS: BP 133/60
[2022-10-21] MEDS: INSULIN LISPRO 100 UNIT/1 ML 3ML VIAL SQ SCH ×2 (08:30→11:55)
[2022-10-21] MEDS: TRIAMCINOLONE ACET 0.1% CREAM 15 GM TUBE TOP SCH (09:30)
[2022-10-21] MEDS: PANTOPRAZOLE SOD 40 MG TABEC PO SCH (09:30)
[2022-10-21] MEDS: HEPARIN SOD (PORCINE) 5,000 UNIT/ML VIAL SC SCH (09:30)
[2022-10-21] MEDS: DORZOLAMIDE/TIMOLOL (OPTH SOL) 10 ML DRPETTE OP SCH (09:30)
[2022-10-21] MEDS: COLLAGENASE 5 GM TUBE TP SCH (09:30)
[2022-10-21] MEDS ORDERED: FUROSEMIDE40 MG PO (10:58)
[2022-10-21] MEDS ORDERED: Collagenase TP (10:58)
[2022-10-21 11:51] VITALS: BP 139/68
[2022-10-21 15:48] VITALS: BP 148/60
[2022-10-21] MEDS ORDERED: CEFAZOLIN SODIUM 2 GM in SODIUM CHLORIDE 0.9% 100 ML IV SCH (17:00)
[2022-10-21] MEDS ORDERED: FUROSEMIDE 40 MG TAB PO SCH (18:00)
== END 2022-10-21 17:45 | disposition home health service (06) | DRG 314 ==
LOC: ER 10:47 → ERHOLD 15:40 → IMCU 21:52 → MED/SURG3 10-15 19:04
PROVIDERS: ADMIT Internal Medicine; ATTEND Internal Medicine
PROC: 5A1D70Z Performance of Urinary Filtration, Intermittent, Less than 6 Hours Per Day (ICD-10-PCS; principal; 2022-10-12)
PROC: 30243N1 Transfusion of Nonautologous Red Blood Cells into Central Vein, Percutaneous Approach (ICD-10-PCS; 2022-10-12)
PROC: 02HV33Z Insertion of Infusion Device into Superior Vena Cava, Percutaneous Approach (ICD-10-PCS; 2022-10-14)
PROC: 02HV33Z Insertion of Infusion Device into Superior Vena Cava, Percutaneous Approach (ICD-10-PCS; 2022-10-16)
PROC: 02PYX3Z Removal of Infusion Device from Great Vessel, External Approach (ICD-10-PCS; 2022-10-21)
DX: T80.211A Bloodstream infection due to central venous catheter, initial encounter (principal); A41.01 Sepsis due to Methicillin susceptible Staphylococcus aureus; N18.6 End stage renal disease; I12.0 Hypertensive chronic kidney disease with stage 5 chronic kidney disease or end stage renal disease; D62 Acute posthemorrhagic anemia; B95.61 Methicillin susceptible Staphylococcus aureus infection as the cause of diseases classified elsewhere; E11.22 Type 2 diabetes mellitus with diabetic chronic kidney disease; Z99.2 Dependence on renal dialysis; Z79.4 Long term (current) use of insulin; H54.8 Legal blindness, as defined in USA; L89.150 Pressure ulcer of sacral region, unstageable; L89.322 Pressure ulcer of left buttock, stage 2; L89.620 Pressure ulcer of left heel, unstageable; L89.610 Pressure ulcer of right heel, unstageable; D63.1 Anemia in chronic kidney disease; E78.00 Pure hypercholesterolemia, unspecified; E11.319 Type 2 diabetes mellitus with unspecified diabetic retinopathy without macular edema; I25.10 Atherosclerotic heart disease of native coronary artery without angina pectoris; E11.69 Type 2 diabetes mellitus with other specified complication; E78.5 Hyperlipidemia, unspecified; R09.02 Hypoxemia; Z20.822 Contact with and (suspected) exposure to COVID-19
CPT/HCPCS: 36415; 36556; 36569; 36589; 71045; 72132; 74177; 74470; 76942; 77001; 78802; 80048; 80053; 82948; 83540; 83605; 84466; 85025; 85610; 85730; 86704; 86706; 86850; 86900; 86920; 87040; 87070; 87071; 87186; 87205; 87340; 93005; 94640; 94799; 99252; 99284; A9556; A9570; C1752; C1769; J1644; J1815; J2001; J2543; J3475; J7030; J7040; J7050; P9016; Q9967